=== PATIENT | female | born 1950 | race African-American/Black ===

== ENCOUNTER 2017-05-28 23:38 | Inpatient (IN) ==
[2017-05-29] MEDS ORDERED: NITROGLYCERIN 2% OINT 1 INCH/GM PACK TOP STA (00:08)
[2017-05-29] MEDS ORDERED: ALUM/MAG/SIMETH/LIDO VISC 1:1 30 ML BOTTLE PO STA (00:08)
[2017-05-29] MEDS ORDERED: ASPIRIN 325 MG TABLET PO STA (00:08)
[2017-05-29] MEDS ORDERED: MORPHINE 2 MG/1 ML SYRINGE IV STA ×2 (00:08→00:33)
[2017-05-29] MEDS ORDERED: METOPROLOL TARTRATE 5 MG/5 ML VIAL IV STA (00:08)
[2017-05-29] MEDS ORDERED: PROMETHAZINE 25 MG/1 ML VIAL IM STA (00:08)
[2017-05-29] MEDS ORDERED: ENOXAPARIN 100 MG/ML SYRINGE SUBCUT STA (00:08)
--- NOTE | 2017-05-29 00:15 | Emergency Department Note ---
IOnur Emily, am scribing for, and in the presence of, Aries Ta MD 00: 03. Keyon Lopez Charles R, MD, personally performed the services described in this documentation, ascribed by Radha Mohr in my presence, and it is both accurate and complete . 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 Pt describes pain as sharp with pressure on chest, and nausea hit with one emesis, but denies pain radiating. Pt reports as soon as she vomited, she came immediately to ED, in which states currently in no pain. Pt reports having a stress test/ECHO done about two months ago under supervision of Dr. Mendenhall, but was vague about the results. PMHx of IDDM, HTN , TIA, and blood clot years ago when taking blood thinners but no longer on blood thinners. Pt takes aspirin daily and took it this morning. FMHx of mother of heart attack. Onset (ago): hour(s) Consistency: constant, intermittent Severity: moderate Severity scale (1-10): 7 Quality: aching, sharp Allergies/Adverse Reactions: Allergies Allergy/AdvReac Type Severity Reaction Status Date / Time ketorolac [From Toradol] Allergy RASH Verified 05/29/17 00:00 nalbuphine [From Nubain] AdvReac Nausea Verified 05/29/17 00:00 ondansetron AdvReac Palpitation Verified 05/29/17 00:00 [From Zofran (as s hydrochloride)] tramadol [From Ultram] AdvReac Nausea Verified 05/29/17 00:00 Home Medications: Home Medications Medication Instructions Recorded Confirmed Type ALPRAZolam [Alprazolam] 0.5 mg PO Q4-6H PRN 05/26/15 11/20/16 History Albuterol Sulfate [Ventolin HFA] 2 puff INH DIRECTED PRN 05/26/15 11/20/16 History Allopurinol [Zyloprim] 100 mg PO BEDTIME 05/26/15 11/20/16 History Carvedilol 25 mg PO BID 05/26/15 11/20/16 History Gabapentin 600 mg PO TID 05/26/15 11/20/16 History Hydrocodone/Acetaminophen 1 each PO Q4HR 05/26/15 11/20/16 History [Hydrocodon-Acetaminophn 10-325] Insulin Aspart Prot/Asp 70/30 50 units SUBCUT DAILY W/BREAKFAST 05/26/15 History [NovoLOG Mix 70/30] Promethazine Tab [Phenergan Tab] 25 mg PO Q6H PRN #10 tablet 01/19/16 11/20/16 Rx Insulin Aspart Prot/Asp 70/30 35 unit SUBCUT BEDTIME 11/20/16 11/20/16 History [NovoLOG Mix 70/30] Tizanidine HCl [Zanaflex] 2 mg PO Q6H PRN 11/20/16 11/20/16 History Neomyc/Polymyx/Dexam Oph Susp 1 drops BOTH EYES DAILY 11/24/16 Rx [Maxitrol Oph Susp] ophthalmic suspension Pantoprazole Tab [Protonix Tab] 40 mg PO DAILY #60 tablet 11/24/16 Rx Sucralfate Tab [Carafate Tab] 1 gm PO ACHS tablet 11/24/16 Rx Review of System - Review of System 12 point system: reviewed and no additional remarkable complaints except as stated - Review of System Constitutional: Absent: fever Cardiovascular: Present: chest pain (non radiating) Gastrointestinal: Present: nausea, vomiting. Absent: abdominal pain Skin: Absent: rash Neurological: Absent: headache Medical,Surgical,& Family Hx - Medical History Cardio: History of: Cardiac Dysrhythmia (AFIB), Hypertension Neurology: History of: TIA Endocrine: History of: Diabetes Mellitus (IDDM), Dyslipidemia Gastrointestinal: History of: Diverticulitis/ Diverticulosis, GERD Musculoskeletal: History of: Musculoskeletal Problems (Osteoarthritis) - Surgical History Cardiac Surgeries: Patient Denies: Cardiac Catheterization Abdominal Surgeries: Surgical HX of: Abdominal Surgery (colon resection r/t diverticular rupture, SBO s/p SBR), Colonoscopy Reproductive Surgeries: Surgical HX of;: Hysterectomy - Family History Family History: Reports;: Family Heart Disease (MOM, AT 69) - Social History Smoking Status: Never smoker Marital Status: Single Lives With:: Alone Functional capacity: independent ambulation Exam Vital Signs: Vital Signs Temperature 97.6 F 05/28/17 23:42 Pulse Rate 96 H 05/28/17 23:42 Respiratory Rate 24 05/28/17 23:42 Blood Pressure 180/96 05/28/17 23:42 O2 Sat by Pulse Oximetry 98 05/28/17 23:42 - General General appearance: alert, in no apparent distress - Head Head exam: Present: atraumatic, normocephalic - Eye Eye exam: Present: PERRL, EOMI - ENT ENT exam: Present: mucous membranes moist. Absent: mucous membranes dry - Neck Neck exam: Present: full ROM. Absent: tenderness - Chest Chest inspection: Present: symmetric chest wall rise. Absent: tenderness - Respiratory Respiratory exam: Present: normal lung sounds bilaterally. Absent: respiratory distress - Cardiovascular Cardiovascular exam: Present: regular rate, normal rhythm, normal heart sounds - Abdominal Exam Abdominal exam: Present: soft, normal bowel sounds. Absent: distention, tenderness - Extremities Exam Extremities exam: Present: full ROM. Absent: tenderness, pedal edema - Neurological Exam Neurological exam: Present: alert, oriented X3, CN II-XII intact. Absent: motor sensory deficit - Psychiatric Psychiatric exam: Present: normal affect, normal mood - Skin Skin exam: Present: warm, dry Course - Consultations Consultation #1: Spoke to Dr. Skinner showed him the EKG he said since this is a new left parietal block and she has currently has 0 pain 0 out of 10 pain in the emergency room he said to treat this medically admit to the hospital he will see her tomorrow no need to go to the [facility] Time: 11:53 Results - Labs CBC & BMP: 05/29/17 00:03 05/29/17 00:03 Lab Results: I have reviewed the patients labs Labs: Laboratory Tests 05/29/17 00:03 Hgb 11.3 L Hct 34.7 L MPV 9.4 L Laboratory Tests 05/29/17 05/29/17 00:03 00:03 Sodium 140 Potassium 3.8 Chloride 107 Carbon Dioxide 28 Creatinine 1.20 H Glucose 70 L Alkaline Phosphatase 137 H B-Natriuretic Peptide 88 Total Protein 8.6 H Globulin 4.9 H Albumin/Globulin Ratio 0.7 L Lipase 143.0 Critical Care Time Critical Care Time: Yes Total Critical Care Time: 60 Disposition Clinical Impression: Chest pain, IDDM (insulin dependent diabetes mellitus), New onset left bundle branch block (LBBB), Hypertension Case discussed with: patient Condition: Stable Time of Disposition: 01:16
[2017-05-29 00:18] LABS: Basophils # 0.1 10*3/uL (0.0-0.2); Basophils % 0.5 % (0.0-0.8); Eosinophils # 0.3 10*3/uL (0.0-0.87); Eosinophils % 3.1 % (0.00-10.9); Hematocrit 34.7 VOL% (35.7-47.0); Hemoglobin 11.3 GM/DL (12.0-16.0); Immature Granulocytes Absolute 0.09 #; Lymphocytes # 2.2 10*3/uL (1.4-4.0); Lymphocytes % 23.5 % (21.3-54.2); Mean Corpuscular HGB Conc 32.6 GM/DL (32-36); Mean Corpuscular Hemoglobin 30 PG (27-34); Mean Corpuscular Volume 91.1 FL (87-102); Mean Platelet Volume 9.4 FL (9.6-12.0); Monocytes # 0.8 10*3/uL (0.11-0.8); Neutrophils % 63.9 % (38.7-73.9); Platelet Count 392 T/CUMM (130-400); Red Blood Count 3.81 MC/CUMM (3.8-5.5); White Blood Count 9.4 T/CUMM (4-12)
[2017-05-29] MEDS ORDERED: ENOXAPARIN 100 MG/ML SYRINGE SUBCUT ONE (00:18)
[2017-05-29] MEDS ORDERED: NITROGLYCERIN 2% OINT 1 INCH/GM PACK TOP ONE (00:18)
[2017-05-29] MEDS ORDERED: PROMETHAZINE 25 MG/1 ML VIAL ONE (00:18)
[2017-05-29] MEDS ORDERED: ASPIRIN 325 MG TABLET ONE (00:19)
[2017-05-29] MEDS ORDERED: MORPHINE 2 MG/1 ML SYRINGE ONE (00:19)
[2017-05-29] MEDS ORDERED: METOPROLOL TARTRATE 5 MG/5 ML VIAL IV ONE (00:19)
[2017-05-29] MEDS ORDERED: ALUM/MAG/SIMETH/LIDO VISC 1:1 30 ML BOTTLE PO ONE (00:19)
[2017-05-29 00:25] LABS: PT Patient Result 10.3 SECS
[2017-05-29] MEDS ORDERED: NITROGLYCERIN SL 0.4 MG TABLET SL STA (00:33)
[2017-05-29 00:55] LABS: Alanine Aminotransferase 21 U/L (13-56); Albumin 3.7 G/DL (3.4-5.0); Alkaline Phosphatase 137 U/L (45-117); Aspartate Amino Transferase 21 U/L (0-37); Bilirubin,Total < 0.39 MG/DL (0.2-1.0); Blood Urea Nitrogen 15 MG/DL (7-18); Calcium 9.6 MG/DL (8.5-10.1); Glucose 70 MG/DL (74-106); Magnesium 2.3 MG/DL (1.8-2.4); Osmolality,Calculated 277.4 MOS/KG (273-304); Potassium 3.8 MMOL/L (3.5-5.1); Sodium 140 MMOL/L (136-145); Total Protein 8.6 G/DL (6.4-8.3)
[2017-05-29] MEDS ORDERED: SODIUM CHLORIDE 0.9% 1,000 ML IV SCH (03:44)
[2017-05-29] MEDS ORDERED: MORPHINE 2 MG/1 ML SYRINGE IV PRN (03:44)
[2017-05-29] MEDS ORDERED: DEXTROSE 50% 25 GM/50 ML SYRINGE IV PRN (03:44)
[2017-05-29] MEDS ORDERED: MAGNESIUM SULF RIDER 2 GM in PREMIX 1 EACH IV PRN (03:44)
[2017-05-29] MEDS ORDERED: POTASSIUM CHLORIDE 20 MEQ TABLET PO PRN (03:44)
[2017-05-29] MEDS ORDERED: GLUCAGON 1 MG VIAL IM PRN (03:44)
[2017-05-29] MEDS ORDERED: MAGNESIUM SULF RIDER 4 GM in PREMIX 1 EACH IV PRN (03:44)
--- NOTE | 2017-05-29 04:45 | Cardiology History & Physical ---
Assessment and Plan - Time spent with patient Time spent with patient: Greater than 30 minutes (Examination, chart review, history, orders documentation) (1) Vertigo Status: Acute Current Visit: Yes (2) Chest pain Status: Acute Current Visit: Yes (3) Hypertension Status: Acute Current Visit: Yes (4) Esophagitis determined by endoscopy Status: Acute Current Visit: No (5) History of atrial fibrillation Status: Chronic Current Visit: No (6) HTN (hypertension) Status: Chronic Current Visit: No (7) History of melena Status: Resolved Current Visit: No (8) DM (diabetes mellitus) Status: Acute Current Visit: Yes History of Present Illness Chief complaint: Nausea dizziness and chest pain History of present illness: Ms. Davison is a 66 year old female with history of left bundle branch block and recent GI bleed who presented to the emergency room after having an episode of severe dizziness followed by emesis followed by 2 episodes of sharp chest discomfort. The patient EKG showed a left bundle branch block and I was called told the patient was Dr. Mendenhall's patient who had heart disease and a new left bundle branch block her chest pain was had resolved. Apparently the patient was recently hospitalized for GI bleed requiring multiple units of packed cells with both melena and bright red blood per rectum. The patient states that the episodes episode occurred in started out with dizziness followed by nausea and then sharp chest pain that was right in the center of her chest not associated with nausea or diaphoresis she also states that she had a significant amount of palpitations prior to her emesis. She has not had any exertional chest discomfort. She had a low risk nuclear stress test at [facility] in December of this year. Her ejection fraction was mildly depressed at 45-50% by echo and she had septal bounce felt to be due to her underlying left bundle branch block. She denies any heart cath. Her risk factors include family history remote smoking diabetes and dyslipidemia. The patient is admitted to the cardiology service she has not had any more chest discomfort since arrival to the emergency room she has not had any more palpitations or dizziness. She has experienced some nausea. I saw her in room 295 resting comfortably. The concerns for recent GI bleed in the sequence of events are very concerning for this being a GI source or possibly even a ANTENNA RIGGER source given her dizziness. She has a history of paroxysmal atrial fibrillation and did have palpitations beforehand. Her cardiac biomarkers are initial set is negative. I have reviewed her EKGs. I reviewed her chart at [facility]. Home Medications Medication Instructions Recorded Confirmed Type ALPRAZolam [Alprazolam] 0.5 mg PO Q4-6H PRN 05/26/15 11/20/16 History Albuterol Sulfate [Ventolin HFA] 2 puff INH DIRECTED PRN 05/26/15 11/20/16 History Allopurinol [Zyloprim] 100 mg PO BEDTIME 05/26/15 11/20/16 History Carvedilol 25 mg PO BID 05/26/15 11/20/16 History Gabapentin 600 mg PO TID 05/26/15 11/20/16 History Hydrocodone/Acetaminophen 1 each PO Q4HR 05/26/15 11/20/16 History [Hydrocodon-Acetaminophn 10-325] Insulin Aspart Prot/Asp 70/30 50 units SUBCUT DAILY W/BREAKFAST 05/26/15 History [NovoLOG Mix 70/30] Promethazine Tab [Phenergan Tab] 25 mg PO Q6H PRN #10 tablet 01/19/16 11/20/16 Rx Insulin Aspart Prot/Asp 70/30 35 unit SUBCUT BEDTIME 11/20/16 11/20/16 History [NovoLOG Mix 70/30] Tizanidine HCl [Zanaflex] 2 mg PO Q6H PRN 11/20/16 11/20/16 History Neomyc/Polymyx/Dexam Oph Susp 1 drops BOTH EYES DAILY 11/24/16 Rx [Maxitrol Oph Susp] ophthalmic suspension Pantoprazole Tab [Protonix Tab] 40 mg PO DAILY #60 tablet 11/24/16 Rx Sucralfate Tab [Carafate Tab] 1 gm PO ACHS tablet 11/24/16 Rx Allergies Allergy/AdvReac Type Severity Reaction Status Date / Time ketorolac [From Toradol] Allergy RASH Verified 05/29/17 00:00 nalbuphine [From Nubain] AdvReac Nausea Verified 05/29/17 00:00 ondansetron AdvReac Palpitation Verified 05/29/17 00:00 [From Zofran (as s hydrochloride)] tramadol [From Ultram] AdvReac Nausea Verified 05/29/17 00:00 - Constitutional Constitutional: Present: anorexia (Since dinner she has decreased appetite says she denied a full dinner just because she was not hungry). Absent: chills, frequent falls, headache(s), weight gain, weight loss - EENT Eyes: Present: blurry vision. Absent: diplopia Nose, mouth and throat: Absent: dysphagia, headache(s), hoarseness - Cardiovascular Cardiovascular: Present: chest pain at rest, lightheadedness, palpitations. Absent: chest pain with activity, dyspnea, dyspnea on exertion, edema, orthopnea , PND - Respiratory Respiratory: Absent: cough, dyspnea, dyspnea on exertion - Gastrointestinal Gastrointestinal: Present: bloating, early satiety, nausea, vomiting. Absent: abdominal pain, dyspepsia, heartburn, hematemesis - Genitourinary Genitourinary: Absent: abnormal vaginal bleeding, menorrhagia - Musculoskeletal Musculoskeletal: Present: arthralgias. Absent: back pain, joint swelling, muscle weakness, myalgias - Neurological Neurological: Absent: abnormal gait, dizziness, syncope - Psychiatric Psychiatric: Absent: anxiety, depression - Endocrine Endocrine: Absent: cold intolerance, heat intolerance - Hematologic/Lymphatic Hematologic/Lymphatic: Absent: easy bleeding, easy bruising Medical,Surgical,& Family Hx - Medical History Cardio: History of: Cardiac Dysrhythmia (AFIB, paroxysmal), Hypertension, Cardiovascular Problems (Intermittent left bundle branch block, chronic. Cardiomyopathy EF 50%) Neurology: History of: TIA Endocrine: History of: Diabetes Mellitus (IDDM), Dyslipidemia Gastrointestinal: History of: Diverticulitis/ Diverticulosis, GERD Musculoskeletal: History of: Musculoskeletal Problems (Osteoarthritis) - Surgical History Cardiac Surgeries: Patient Denies: Cardiac Catheterization Neurologic Surgeries: Patient denies: Neurologic Surgery Abdominal Surgeries: Surgical HX of: Abdominal Surgery (colon resection r/t diverticular rupture, SBO s/p SBR), Colonoscopy Reproductive Surgeries: Surgical HX of;: Hysterectomy - Family History Family History: Reports;: Family Heart Disease (MOM, AT 69) - Social History Smoking Status: Never smoker Frequency of Alcohol Use: None Type of Drug Use: None Marital Status: Lives With:: Spouse Functional capacity: independent ambulation Cardiology Physical Exam - Constitutional Vitals: Vital Signs Temp Pulse Resp BP Pulse Ox 97.6 F 96 H 18 180/96 98 05/28/17 23:42 05/28/17 23:42 05/29/17 04:15 05/28/17 23:42 05/28/17 23:42 Intake and Output 05/28/17 05/28/17 05/29/17 15:59 23:59 07:59 Other: Weight 89.811 kg 93.157 kg Patient Weight 05/29/17 23:59 Weight 93.157 kg General appearance: over weight - Head Head exam: Present: normal inspection - Eye Eye exam: Present: EOMI Pupils: Present: JOCELYN - ENT ENT exam: Present: normal exam - Neck Neck exam: Present: normal inspection - Respiratory Respiratory exam: Present: clear to auscultation bilaterally - Cardiovascular Cardiovascular exam: Present: regular rate and rhythm - GI/Abdominal GI/Abdominal exam: Present: normal bowel sounds - Extremities Exam Extremities exam: Present: normal inspection - Back Exam Back exam: Present: normal inspection - Neurological Exam Neurological exam: Present: alert, oriented X3, CN II-XII intact - Psychiatric Psychiatric exam: Present: normal affect, normal mood - Skin Skin exam: Present: normal color, warm, dry Result/EKG - Labs CBC & BMP: 05/29/17 00:03 05/29/17 00:03 Labs: Laboratory Results - last 24 hr 05/29/17 05/29/17 05/29/17 00:03 00:03 00:03 WBC RBC Hgb Hct MCV MCH MCHC RDW Plt Count MPV Neut % (Auto) Lymph % (Auto) [place] % (Auto) Eos % (Auto) Baso % (Auto) Neut # (Auto) Lymph # (Auto) [place] # (Auto) Eos # (Auto) Baso # (Auto) Immature Gran % Nucleated RBC % Immature Gran # Nucleated RBCs # Immature Plt Fraction INR 1.0 PT Patient/Control Mix 10.3 D-Dimer, Quantitative 1.0 Sodium 140 Potassium 3.8 Chloride 107 Carbon Dioxide 28 Anion Gap 8.8 BUN 15 Creatinine 1.20 H GFR Calculation 64 BUN/Creatinine Ratio 12.00 Glucose 70 L Calculated Osmolality 277.4 Calcium 9.6 Magnesium 2.3 Total Bilirubin < 0.39 AST 21 ALT 21 Alkaline Phosphatase 137 H Troponin I < 0.015 B-Natriuretic Peptide Total Protein 8.6 H Albumin 3.7 Globulin 4.9 H Albumin/Globulin Ratio 0.7 L Lipase 143.0 05/29/17 05/29/17 00:03 00:03 WBC 9.4 RBC 3.81 Hgb 11.3 L Hct 34.7 L MCV 91.1 MCH 30 MCHC 32.6 RDW 14.0 Plt Count 392 MPV 9.4 L Neut % (Auto) 63.9 Lymph % (Auto) 23.5 [place] % (Auto) 8.0 Eos % (Auto) 3.1 Baso % (Auto) 0.5 Neut # (Auto) 6.0 Lymph # (Auto) 2.2 [place] # (Auto) 0.8 Eos # (Auto) 0.3 Baso # (Auto) 0.1 Immature Gran % 1.0 Nucleated RBC % 0.0 Immature Gran # 0.09 Nucleated RBCs # 0.00 Immature Plt Fraction 0.0 INR PT Patient/Control Mix D-Dimer, Quantitative Sodium Potassium Chloride Carbon Dioxide Anion Gap BUN Creatinine GFR Calculation BUN/Creatinine Ratio Glucose Calculated Osmolality Calcium Magnesium Total Bilirubin AST ALT Alkaline Phosphatase Troponin I B-Natriuretic Peptide 88 Total Protein Albumin Globulin Albumin/Globulin Ratio Lipase - EKG EKG results: interpreted by me (nsr with lbbb (NOT NEW))
[2017-05-29] MEDS ORDERED: ONDANSETRON 4 MG/2 ML VIAL IV PRN (04:52)
[2017-05-29] MEDS ORDERED: NON-FORMULARY MEDICATION (Albuterol Sulfate [Ventolin Hfa] 2 PUFF) INH PRN (04:52)
[2017-05-29] MEDS ORDERED: tiZANidine 4 MG TABLET PO PRN (04:52)
[2017-05-29] MEDS ORDERED: ALPRAZolam 0.5 MG TABLET PO PRN (04:52)
[2017-05-29 06:15] LABS: Basophils % 0.5 % (0.0-0.8); Eosinophils # 0.2 10*3/uL (0.0-0.87); Eosinophils % 2.1 % (0.00-10.9); Hematocrit 30.4 VOL% (35.7-47.0); Hemoglobin 10.1 GM/DL (12.0-16.0); Immature Granulocytes % 0.6 %; Immature Granulocytes Absolute 0.05 #; Lymphocytes # 1.6 10*3/uL (1.4-4.0); Lymphocytes % 20.2 % (21.3-54.2); Mean Corpuscular HGB Conc 33.2 GM/DL (32-36); Mean Corpuscular Hemoglobin 30 PG (27-34); Mean Corpuscular Volume 90.2 FL (87-102); Mean Platelet Volume 9.4 FL (9.6-12.0); Monocytes # 0.5 10*3/uL (0.11-0.8); Monocytes % 6.8 % (1.7-12.7); Neutrophils # 5.4 10*3/uL (1.4-7.4); Neutrophils % 69.8 % (38.7-73.9); Platelet Count 367 T/CUMM (130-400); Red Blood Count 3.37 MC/CUMM (3.8-5.5); Red Cell Distribution Width 13.8 % (9.3-17.3); White Blood Count 7.8 T/CUMM (4-12)
[2017-05-29] MEDS: PROMETHAZINE 25 MG TABLET PO PRN ×3 (06:34→21:05)
[2017-05-29] MEDS: NITROGLYCERIN 2% OINT 1 INCH/GM PACK TOP SCH ×3 (06:52→17:36)
[2017-05-29 06:55] LABS: Alanine Aminotransferase 19 U/L (13-56); Albumin 3.4 G/DL (3.4-5.0); Alkaline Phosphatase 113 U/L (45-117); Amylase 32 U/L (25-115); Aspartate Amino Transferase 15 U/L (0-37); Bilirubin,Indirect 0.3 MG/DL (0.0-1.0); Bilirubin,Total < 0.39 MG/DL (0.2-1.0); Total Protein 7.2 G/DL (6.4-8.3)
[2017-05-29 06:56] LABS: Albumin 3.3 G/DL (3.4-5.0); Bilirubin,Total 0.5 MG/DL (0.2-1.0); Calcium 9.4 MG/DL (8.5-10.1); Magnesium 2.3 MG/DL (1.8-2.4); Potassium 4.2 MMOL/L (3.5-5.1); Risk Ratio 5.28; Total Protein 6.9 G/DL (6.4-8.3); VLDL CHOLESTEROL 29.8 MG/DL
--- NOTE | 2017-05-29 07:35 | EKG Report ---
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
--- NOTE | 2017-05-29 07:56 | XRay Report ---
XR chest 1V portable Indication: Shortness of breath Comparison: Chest x-ray 05/29/2017 Technique: Portable AP chest was performed. Findings: Underpenetrated study. Mild cardiomegaly is present. Lungs are clear for degree of inspiration and technique utilized. Bones and soft tissues are grossly remarkable. Impression: 1. Mild cardiomegaly. No specific evidence of acute pathology. 05/29/2017 7:53 AM PROCEDURE INTERPRETED AT [facility] DEPARTMENT OF RADIOLOGY Final Report Signed by: Dr. Srinivas Andrade
[2017-05-29] MEDS: CARVEDILOL 25 MG TABLET PO SCH ×2 (08:35→20:56)
[2017-05-29] MEDS: ASPIRIN EC 81 MG TABLET PO SCH (08:35)
[2017-05-29] MEDS: SUCRALFATE 1 GM TABLET PO SCH ×4 (08:36→20:57)
[2017-05-29] MEDS: PANTOPRAZOLE 40 MG TABLET PO SCH ×2 (08:36→09:51)
[2017-05-29] MEDS: GABAPENTIN 600 MG TABLET PO SCH ×3 (08:36→20:56)
[2017-05-29] MEDS: INSULIN ASPART PROTAMINE/ASPART 70/30 100 UNIT/ML SUBCUT SCH ×2 (08:36→08:41)
[2017-05-29] MEDS: INSULIN REGULAR 100 UNIT/ML SUBCUT SCH ×4 (08:37→21:01)
[2017-05-29] MEDS ORDERED: ENOXAPARIN 100 MG/ML SYRINGE SUBCUT SCH (09:00)
--- NOTE | 2017-05-29 09:15 | EKG Report ---
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
--- NOTE | 2017-05-29 09:15 | EKG Report ---
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
--- NOTE | 2017-05-29 09:45 | XRay Report ---
XR chest 1V portable Indication: Chest pain. Comparison: Chest x-ray 07/28/2016 Technique: Portable AP chest was performed. Findings: Mild cardiomegaly is suggested. Uncoiling of the thoracic aorta is moderate and appears stable. Prominent vessels are noted centrally within the chest. Lungs are clear for degree of inspiration. Bones and soft tissues demonstrate no acute findings. Impression: 1. Stable cardiomegaly. Mild pulmonary venous hypertensive changes are not excluded. 05/29/2017 9:10 AM PROCEDURE INTERPRETED AT [facility] DEPARTMENT OF RADIOLOGY Final Report Signed by: Dr. Srinivas Andrade
--- NOTE | 2017-05-29 15:29 | Gastrointestinal Consult Note ---
Assessment and Plan (1) Atypical chest pain Status: Acute Assessment and plan: This patient is already on maximal doses of Protonix 40 mg which she takes twice daily, we do need to check a gastric emptying study to see whether there is a motility issue as was thought to be present on her previous endoscopy done on 11/23/16. Will arrange for this for tomorrow. The patient could be discharged home immediately afterwards we will call her with the results of the gastric emptying study when this becomes available likely as an outpatient for her. I discussed the risks and benefits of use of Reglan which include sedation , agitation, and tardive dyskinesia side effects. The patient is understanding of these and is willing to proceed. She also complains of agitation her sleep after not using her CPAP and I suggested she bring hers in from home and initiate use now. Current Visit: Yes (2) Bloating symptom Status: Acute Assessment and plan: Again this is the major sign that the patient has underlying problems with gastroparesis. We will continue to await outpatient testing. Current Visit: Yes (3) Esophagitis determined by endoscopy Status: Acute Assessment and plan: The patient previously had upper endoscopy which demonstrated mild esophagitis, she is already on Protonix 40 mg p.o. twice daily and this is really all that she needs. Current Visit: No (4) Gastritis determined by endoscopy Status: Acute Assessment and plan: No Helicobacter pylori discovered on previous pathology. Continue treatment with proton pump inhibitors twice daily. Current Visit: No History of Present Illness Chief complaint: Atypical chest pain, dysphagia, GERD, History of present illness: Ms. Davison is a 66 year old female who has a history of melena and dysphagia and LA class a erosive esophagitis and dysphagia all of which are improved with her present dosing of Protonix 40 mg twice daily. She has a large hiatal hernia which is 5 cm with a moderate amount of green retained fluid in the stomach and mild patchy gastritis on her previous upper endoscopy which was done 11/23/16. She is now returned with more of a bloating and atypical chest pain sensation and is been evaluated by Dr. Leann lBack and felt to have an old bundle branch block that has been intermittent in the past and nothing that requires immediate intervention. Patient does take Protonix 40 mg twice daily at home has been fairly fastidious about taking this. She does have a sensation of bloating. She has never been on Reglan nor had gastric emptying study performed in the past, despite the green fluid seen on upper endoscopy. She also states that when observed at night she is heaving up and down with her chest unable to breathe according to her . On retrospect she has already been diagnosed with sleep apnea and just neglected to take her CPAP for use over the last 2 months. She has not had much in the way of diarrhea or constipation. Her hematocrit is dropped over the hospitalization between 34.7 and 30.4 currently. Home Medications Medication Instructions Recorded Confirmed Type ALPRAZolam [Alprazolam] 0.5 mg PO Q4-6H PRN 05/26/15 11/20/16 History Albuterol Sulfate [Ventolin HFA] 2 puff INH DIRECTED PRN 05/26/15 11/20/16 History Allopurinol [Zyloprim] 100 mg PO BEDTIME 05/26/15 11/20/16 History Carvedilol 25 mg PO BID 05/26/15 11/20/16 History Gabapentin 600 mg PO TID 05/26/15 11/20/16 History Hydrocodone/Acetaminophen 1 each PO Q4HR 05/26/15 11/20/16 History [Hydrocodon-Acetaminophn 10-325] Insulin Aspart Prot/Asp 70/30 50 units SUBCUT DAILY W/BREAKFAST 05/26/15 History [NovoLOG Mix 70/30] Promethazine Tab [Phenergan Tab] 25 mg PO Q6H PRN #10 tablet 01/19/16 11/20/16 Rx Insulin Aspart Prot/Asp 70/30 35 unit SUBCUT BEDTIME 11/20/16 11/20/16 History [NovoLOG Mix 70/30] Tizanidine HCl [Zanaflex] 2 mg PO Q6H PRN 11/20/16 11/20/16 History Neomyc/Polymyx/Dexam Oph Susp 1 drops BOTH EYES DAILY 11/24/16 Rx [Maxitrol Oph Susp] ophthalmic suspension Pantoprazole Tab [Protonix Tab] 40 mg PO DAILY #60 tablet 11/24/16 Rx Sucralfate Tab [Carafate Tab] 1 gm PO ACHS tablet 11/24/16 Rx Allergies Allergy/AdvReac Type Severity Reaction Status Date / Time ketorolac [From Toradol] Allergy RASH Verified 05/29/17 00:00 nalbuphine [From Nubain] AdvReac Nausea Verified 05/29/17 00:00 ondansetron AdvReac Palpitation Verified 05/29/17 00:00 [From Zofran (as s hydrochloride)] tramadol [From Ultram] AdvReac Nausea Verified 05/29/17 00:00 Medical,Surgical,& Family Hx - Medical History Cardio: History of: Cardiac Dysrhythmia (AFIB, paroxysmal), Hypertension, Cardiovascular Problems (Intermittent left bundle branch block, chronic. Cardiomyopathy EF 50%) Neurology: History of: TIA Endocrine: History of: Diabetes Mellitus (IDDM), Dyslipidemia Gastrointestinal: History of: Diverticulitis/ Diverticulosis, GERD Musculoskeletal: History of: Musculoskeletal Problems (Osteoarthritis) - Surgical History Cardiac Surgeries: Patient Denies: Cardiac Catheterization Neurologic Surgeries: Patient denies: Neurologic Surgery Abdominal Surgeries: Surgical HX of: Abdominal Surgery (colon resection r/t diverticular rupture, SBO s/p SBR), Colonoscopy Reproductive Surgeries: Surgical HX of;: Hysterectomy - Family History Family History: Reports;: Family Heart Disease (MOM, AT 69) - Social History Smoking Status: Never smoker Frequency of Alcohol Use: None Type of Drug Use: None 12 point system: reviewed and no additional remarkable complaints except as stated Review of systems: Constitutional: Denies fever, chills, mild nausea nausea, but no vomiting Eyes: Denies dry eyes, and scleral icterus HENT: Denies headaches Cardiovascular: Denies acute chest pain and claudication Respiratory: Occasional shortness of breath, wheezing, and difficulty breathing, denies cough Gastrointestinal: As noted in the HPI Genitourinary: Denies dysuria and hematuria Neurologic: Denies vision loss, and loss of sensation Musculoskeletal: Admits to some joint swelling, joint stiffness, and muscular weakness Psychiatric: She does have some depression but no reinier symptoms Heme-Lymph: Denies easy bruising, lymph node enlargement or tenderness, night sweats, excessive bleeding Allergies-immunologic: Denies pruritus and rhinorrhea Exam - Constitutional Vitals: Period Temp Pulse Resp BP Sys/Moscoso Pulse Ox Last 24 Hr 97 F-97.6 F 59-96 18-24 123-180/60-96 95-98 Exam: Constitutional: Well-developed, well-nourished, morbidly obese black female alert, and in no acute distress Head and face: Head: Normocephalic atraumatic Eyes: Conjunctiva without injection, no gross scleral icterus, pupils equal and round bilaterally Ears: Intact to conversation in both ears Nose: External appearance is normal, nares patent Mouth: Oral mucous membranes moist without erythema dentition noted to be without erosion Neck: Normal appearance, no masses or tenderness, trachea midline Thyroid: Gland midline and appropriate size for age Respiratory: Normal respiratory effort, clear to auscultation without wheezes, rhonchi or rales Cardiovascular: Regular rate and rhythm, normal S1, S2, the exam is without rubs, murmurs or gallops. Gastrointestinal: Mild tenderness to deep palpation in the epigastric and left upper quadrant to palpation, normal active bowel sounds, tone normal without rigidity or guarding, no masses present, no hepatomegaly, no spleen tip felt. No rectal exam obtained. Lymphatic: Neck without adenopathy, axilla without lymphadenopathy present Musculoskeletal: Right and left lower extremities without evidence of edema Skin and subcutaneous tissue: No rashes or ulcerations noted, normal skin turgor, digits and nails without clubbing/cyanosis/deformities. Neurologic: The patient is grossly oriented to person place and time, cranial nerves show tongue movements are normal with normal tongue extrusion midline, light touch sensation is intact. Psychiatric: No hallucinations or delusions are present, does not appear depressed Results - Labs CBC & BMP: 05/29/17 05:58 05/29/17 05:58
[2017-05-29] MEDS ORDERED: amLODIPine 5 MG TABLET PO ONE (18:44)
[2017-05-29] MEDS ORDERED: diphenhydrAMINE CAP 50 MG CAPSULE PO PRN (20:40)
[2017-05-29] MEDS ORDERED: INSULIN ASPART PROTAMINE/ASPART 70/30 100 UNIT/ML SUBCUT SCH (21:00)
[2017-05-29] MEDS ORDERED: ATORVASTATIN 80 MG TABLET PO SCH (21:00)
[2017-05-29] MEDS ORDERED: ALLOPURINOL 100 MG TABLET PO SCH (21:00)
[2017-05-30] MEDS: NITROGLYCERIN 2% OINT 1 INCH/GM PACK TOP SCH ×3 (01:23→12:34)
[2017-05-30 04:55] LABS: Basophils # 0.1 10*3/uL (0.0-0.2); Basophils % 0.8 % (0.0-0.8); Eosinophils # 0.3 10*3/uL (0.0-0.87); Eosinophils % 3.7 % (0.00-10.9); Hematocrit 34.1 VOL% (35.7-47.0); Hemoglobin 10.8 GM/DL (12.0-16.0); Immature Granulocytes % 0.7 %; Immature Granulocytes Absolute 0.05 #; Lymphocytes # 1.6 10*3/uL (1.4-4.0); Lymphocytes % 21.8 % (21.3-54.2); Mean Corpuscular HGB Conc 31.7 GM/DL (32-36); Mean Corpuscular Hemoglobin 29 PG (27-34); Mean Corpuscular Volume 92.4 FL (87-102); Mean Platelet Volume 9.6 FL (9.6-12.0); Monocytes # 0.5 10*3/uL (0.11-0.8); Monocytes % 6.4 % (1.7-12.7); Neutrophils % 66.6 % (38.7-73.9); Platelet Count 390 T/CUMM (130-400); Red Blood Count 3.69 MC/CUMM (3.8-5.5); Red Cell Distribution Width 13.9 % (9.3-17.3); White Blood Count 7.5 T/CUMM (4-12)
[2017-05-30 05:24] LABS: Calcium 9.6 MG/DL (8.5-10.1); Osmolality,Calculated 281.7 MOS/KG (273-304); Potassium 4.7 MMOL/L (3.5-5.1)
--- NOTE | 2017-05-30 06:38 | Gastrointestinal Progress Note ---
Assessment and Plan (1) Atypical chest pain Status: Acute Assessment and plan: This patient is already on maximal doses of Protonix 40 mg which she takes twice daily, we do need to check a gastric emptying study to see whether there is a motility issue as was thought to be present on her previous endoscopy done on 11/23/16. Will arrange for this for tomorrow. The patient could be discharged home immediately afterwards we will call her with the results of the gastric emptying study when this becomes available likely as an outpatient for her. I discussed the risks and benefits of use of Reglan which include sedation , agitation, and tardive dyskinesia side effects. The patient is understanding of these and is willing to proceed. She also complains of agitation her sleep after not using her CPAP and I suggested she bring hers in from home and initiate use now. 05/30/17--patient is doing better this morning, awaiting gastric emptying study. A prescription has been left for both Reglan and Protonix which she can take with her upon discharge. From my standpoint she can go right after the gastric emptying study, we will alert her as to the results of this as an outpatient. I am fairly sure this is going to be prolonged, hence the prescription for the Reglan elixir. She is being given Reglan elixir 1 mg/mL with 5-10 mL q. before meals and nightly as needed for bloating and gastroparesis. She will take this in addition to her Protonix 40 mg twice daily. Current Visit: Yes (2) Bloating symptom Status: Acute Assessment and plan: Again this is the major sign that the patient has underlying problems with gastroparesis. We will continue to await outpatient testing. 05/30/17--As noted above. Patient is able to leave the hospital right after the emptying evaluation. We will follow-up with her in the office as appropriate. Current Visit: Yes (3) Esophagitis determined by endoscopy Status: Acute Assessment and plan: The patient previously had upper endoscopy which demonstrated mild esophagitis, she is already on Protonix 40 mg p.o. twice daily and this is really all that she needs. 05/30/17--As per previous endoscopy Current Visit: No (4) Gastritis determined by endoscopy Status: Acute Assessment and plan: No Helicobacter pylori discovered on previous pathology. Continue treatment with proton pump inhibitors twice daily. 7/31/17--As per prior endoscopy. Current Visit: No Gastroenterology - PN: Subj Interval history: The patient is getting nauseous after she eats consistent with a probable gastroparesis picture. She has some atypical chest pain and was ruled out for cardiac issues with her intermittent left bundle branch block by Dr. Black. She will be able to leave today after she gets her gastric emptying study. A prescription has been written and left in the front of the chart for both Protonix and Reglan presumptively. The patient's family was told to bring in her CPAP which they did but somehow she got switched from CPAP to oxygen over the evening time. The patient is also insisting on using her insulin pen from home to treat her diabetes, according to nursing staff. Exam (Progress Note) - Constitutional Vitals: Period Temp Pulse Resp BP Sys/Moscoso Pulse Ox Last 24 Hr 97 F-98.2 F 18-79 16-18 144-188/69-93 91-98 General appearance: no acute distress - Head Head exam: Present: normocephalic - Eye Eye exam: Present: EOMI - Respiratory Respiratory exam: Present: clear to auscultation bilaterally - Cardiovascular Cardiovascular exam: Present: regular rate and rhythm - GI/Abdominal GI/Abdominal exam: Present: normal bowel sounds, soft. Absent: distended, tenderness, rebound - Neurological Exam Neurological exam: Present: alert, oriented X3, CN II-XII intact. Absent: motor sensory deficit - Psychiatric Psychiatric exam: Present: normal affect, normal mood - Skin Skin exam: Present: warm Results - Labs CBC & BMP: 05/30/17 03:50 05/30/17 03:50
[2017-05-30] MEDS: INSULIN REGULAR 100 UNIT/ML SUBCUT SCH ×3 (07:58→18:00)
[2017-05-30] MEDS ORDERED: amLODIPine 5 MG TABLET PO SCH (09:00)
[2017-05-30] MEDS: INSULIN ASPART PROTAMINE/ASPART 70/30 100 UNIT/ML SUBCUT SCH (09:56)
[2017-05-30] MEDS: SUCRALFATE 1 GM TABLET PO SCH ×3 (09:56→17:00)
[2017-05-30] MEDS: GABAPENTIN 600 MG TABLET PO SCH ×3 (12:27→15:03)
[2017-05-30] MEDS: PANTOPRAZOLE 40 MG TABLET PO SCH ×2 (12:28→12:29)
[2017-05-30] MEDS: CARVEDILOL 25 MG TABLET PO SCH (12:29)
[2017-05-30] MEDS: ASPIRIN EC 81 MG TABLET PO SCH (12:29)
--- NOTE | 2017-05-30 12:44 | Nuclear Medicine Report ---
NM gastric emptying study Indication: Atypical chest pain. Retained food on EGD. Comparison: None. Technique: Following administration of 500 uCi technetium 99m labeled sulfur colloid mixed in an egg sandwich, planar imaging of the stomach and upper abdomen was performed in the anterior projection. Time activity curve was then calculated through 108 minutes. Findings: Planar images demonstrate homogeneous activity within the stomach with emptying into the small bowel normal manner. Time/activity curve demonstrates linear. Half-time of emptying of 141.7 minutes. At 60 minutes, 22% emptying is demonstrated with 38% emptying at 108 minutes. There does appear to be a physiologic lag at the initiation of the study. Impression: 1. Elevated halftimes of emptying compatible with gastroparesis in the solid phase. 05/30/2017 12:40 PM PROCEDURE INTERPRETED AT [facility] DEPARTMENT OF RADIOLOGY Final Report Signed by: Dr. Srinivas Andrade
--- NOTE | 2017-05-30 15:33 | Discharge Summary ---
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 MENDENHALL SUMMARY: Ms. Davison is a 66 year old black female with risk factors significant for: age, hypertension, dyslipidemia, diabetes, obesity, sedentary lifestyle, family history of CAD, previous tobaccoism. Past medical history includes TIA, GERD, paroxysmal atrial fibrillation, gastritis, and esophagitis. Last admission to the hospital was in October 2016 when she presented with epigastric discomfort, rectal bleeding, atypical chest pain, and was treated for a GI bleed. She did require transfusion. She has seen Dr. Mendenhall in clinic in follow-up since that time. [facility] presenting to [facility] ER complaining of atypical chest discomfort, epigastric pain, some transient palpitations prior to an episode of nausea/vomiting. EKG in the ER noted to have left bundle branch block, and Dr. Black saw patient urgently while in the ER. After review of old records, [facility] chart, and clinical presentation, it was determined that it was not an acute coronary syndrome. She was admitted for further observation and evaluation. Cardiac biomarkers have been normal. Gastroenterology has evaluated also. April: Patient has had gastric emptying scan performed today, and has recently returned to her room after completing this. She is resting comfortably, and is using her BiPAP machine. She denies chest pain, dyspnea. Reports she felt she was "breathing funny" earlier, and that her has also recently noticed this, but she also tells me that she has not been using her sleep machine at home for "at least 3 months." She has not had any further epigastric discomfort , nausea, or vomiting since Tuesday afternoon. Labs reviewed and overall unremarkable. SBP 140-175 mmHg. Sinus rhythm, pulse rate 60s, LBBB per stem cleaning machine feeder with no dysrhythmia. ASSESSMENT/PLAN: 1. ATYPICAL CHEST PAIN - No clinical findings for ACS. Patient with history of erosive gastritis and esophagitis. Gastric emptying scan completed this morning. 2. LEFT BUNDLE BRANCH BLOCK - Review of EKG from [facility] records reveal left bundle branch block. Echo on April 25 in clinic showed septal bounce and felt to be due to underlying left bundle branch block. (LV EF 45-50%) 3. HYPERTENSION - BP is suboptimally controlled today. Will adjust antihypertensive medications as indicated. 4. PAROXSYMAL ATRIAL FIBRILLATION - EKG shows sinus rhythm since admission. Continue beta jerry. 5. DIABETES - Continue current plan of care. 6. HYPERLIPIDEMIA - Conginue atorvastatin. 7. GERD - Continue PPI. 8. HISTORY OF EROSIVE GASTRITIS/ESOPHAGITIS - Gastroenterolgy has evaluated. Emptying scan earlier this morning. 9. ANEMIA - Stable; No overt s/s bleeding. Continue to monitor closely. 10. HISTORY OF TIA - Stable. No neurological symptoms or complaint at this time. I have discussed in detail the particulars of this case and I have examined the patient and reviewed the patient's chart both current and old. I was directly involved in the patient's evaluation and management and I completely agree with Felipa Castellanos RN regarding this patient's evaluation and treatment plan. Discharge Plan - Discharge Data Disposition: Disch To Home/Self Care Condition at Discharge: Stable - Discharge Medications Continue Hydrocodone/Acetaminophen [Hydrocodon-Acetaminophn 10-325] 1 each PO Q6HR PRN PRN Reason: Pain Gabapentin 600 mg PO BID Carvedilol 25 mg PO BID Albuterol Sulfate [Ventolin HFA] 2 puff INH DIRECTED PRN PRN Reason: Shortness Of Breath Allopurinol [Zyloprim] 100 mg PO BEDTIME Promethazine Tab [Phenergan Tab] 25 mg PO Q6H PRN #10 tablet PRN Reason: Nausea Insulin Aspart [NovoLOG FlexPen] 10 unit SUBCUT TIDAC Pantoprazole Tab [Protonix Tab] 40 mg PO DAILY #60 tablet Insulin Degludec [Tresiba Flextouch U-200] 50 unit SQ BEDTIME - Follow Up or Referral Follow Up: Torey Mendenhall MD [Physician] - 2 Weeks (EKG BMP CBC on return to clinic) - Forms/Instructions Exam - Constitutional Vitals: Period Temp Pulse Resp BP Sys/Moscoso Pulse Ox Last 24 Hr 97.1 F-98.2 F 18-79 16-20 138-188/68-93 91-98 Discharge Results Labs on day of discharge: Labs from last 24 hours 05/30/17 05/30/17 05/30/17 11:57 08:00 03:50 WBC RBC Hgb Hct MCV MCH MCHC RDW Plt Count MPV Neut % (Auto) Lymph % (Auto) Faulk % (Auto) Eos % (Auto) Baso % (Auto) Neut # (Auto) Lymph # (Auto) Faulk # (Auto) Eos # (Auto) Baso # (Auto) Immature Gran % Nucleated RBC % Immature Gran # Nucleated RBCs # Immature Plt Fraction Sodium 138 Potassium 4.7 Chloride 104 Carbon Dioxide 28 Anion Gap 10.7 BUN 17 Creatinine 1.00 GFR Calculation 14 BUN/Creatinine Ratio 17.00 Glucose 192 H POC Glucose 171 H 185 H Calculated Osmolality 281.7 Calcium 9.6 05/30/17 05/29/17 03:50 17:29 WBC 7.5 RBC 3.69 L Hgb 10.8 L Hct 34.1 L MCV 92.4 MCH 29 MCHC 31.7 L RDW 13.9 Plt Count 390 MPV 9.6 Neut % (Auto) 66.6 Lymph % (Auto) 21.8 Faulk % (Auto) 6.4 Eos % (Auto) 3.7 Baso % (Auto) 0.8 Neut # (Auto) 5.0 Lymph # (Auto) 1.6 Faulk # (Auto) 0.5 Eos # (Auto) 0.3 Baso # (Auto) 0.1 Immature Gran % 0.7 Nucleated RBC % 0.0 Immature Gran # 0.05 Nucleated RBCs # 0.00 Immature Plt Fraction 0.0 Sodium Potassium Chloride Carbon Dioxide Anion Gap BUN Creatinine GFR Calculation BUN/Creatinine Ratio Glucose POC Glucose 223 H Calculated Osmolality Calcium DS: Provider Date of admission: 05/29/17 01:16 Primary care physician: . No PCP Attending physician on admission: Leann Black DO Consults: 05/29/17 04:51 Consult to Physician [CONS] Routine Comment: Consulting Provider: Arnie Heaton Discharging clinician: Torey Mendenhall MD
--- NOTE | 2017-05-30 15:35 | Cardiology Progress Note ---
Emanuel Lopez Vanessa RN, am scribing for, and in the presence of, Torey Mendenhall MD 15:35. Assessment and Plan - Time spent with patient Time spent with patient: Greater than 30 minutes (1) Atypical chest pain Status: Acute Assessment and plan: SEE PLAN OF CARE LISTED BELOW. Current Visit: Yes (2) Dysphagia Status: Acute Assessment and plan: SEE PLAN OF CARE LISTED BELOW. Current Visit: No (3) DM (diabetes mellitus) Status: Chronic Assessment and plan: SEE PLAN OF CARE LISTED BELOW. Current Visit: Yes (4) Hypertension Status: Chronic Assessment and plan: SEE PLAN OF CARE LISTED BELOW. Current Visit: Yes (5) GERD (gastroesophageal reflux disease) Status: Chronic Assessment and plan: SEE PLAN OF CARE LISTED BELOW. Current Visit: Yes (6) History of gastritis Status: Chronic Assessment and plan: SEE PLAN OF CARE LISTED BELOW. Current Visit: Yes (7) History of atrial fibrillation Status: Chronic Assessment and plan: SEE PLAN OF CARE LISTED BELOW. Current Visit: No (8) Anemia Status: Chronic Assessment and plan: SEE PLAN OF CARE LISTED BELOW. Current Visit: Yes (9) Left bundle branch block (LBBB) on electrocardiogram Status: Acute Assessment and plan: SEE PLAN OF CARE LISTED BELOW. Current Visit: Yes (10) History of TIA (transient ischemic attack) Status: Chronic Assessment and plan: SEE PLAN OF CARE LISTED BELOW. Current Visit: Yes Cardiology - PN: Subj Interval history: PRIMARY HUMAN SERVICE COORDINATOR: DR. MENDENHALL SUMMARY: Ms. Davison is a 66 year old black female with risk factors significant for: age, hypertension, dyslipidemia, diabetes, obesity, sedentary lifestyle, family history of CAD, previous tobaccoism. Past medical history includes TIA, GERD, paroxysmal atrial fibrillation, gastritis, and esophagitis. Last admission to the hospital was in October 2016 when she presented with epigastric discomfort, rectal bleeding, atypical chest pain, and was treated for a GI bleed. She did require transfusion. She has seen Dr. Mendenhall in clinic in follow-up since that time. Patient now admitted [facility] after presenting to the ER complaining of atypical chest discomfort, epigastric pain, some transient palpitations prior to an episode of nausea/vomiting. EKG in the ER noted to have left bundle branch block, and Dr. Black saw patient urgently while in the ER. After review of old records, [facility] chart, and clinical presentation, it was determined that it was not an acute coronary syndrome. She was admitted for further observation and evaluation. Cardiac biomarkers have been normal. Gastroenterology has evaluated also. April: Patient has had gastric emptying scan performed today, and has recently returned to her room after completing this. She is resting comfortably, and is using her BiPAP machine. She denies chest pain, dyspnea. Reports she felt she was "breathing funny" earlier, and that her has also recently noticed this, but she also tells me that she has not been using her sleep machine at home for "at least 3 months." She has not had any further epigastric discomfort , nausea, or vomiting since Tuesday afternoon. Labs reviewed and overall unremarkable. SBP 140-175 mmHg. Sinus rhythm, pulse rate 60s, LBBB per court recording monitor with no dysrhythmia. ASSESSMENT/PLAN: 1. ATYPICAL CHEST PAIN - No clinical findings for ACS. Patient with history of erosive gastritis and esophagitis. Gastric emptying scan completed this morning. 2. LEFT BUNDLE BRANCH BLOCK - Review of EKG from [facility] records reveal left bundle branch block. Echo on April 25 in clinic showed septal bounce and felt to be due to underlying left bundle branch block. (LV EF 45-50%) 3. HYPERTENSION - BP is suboptimally controlled today. Will adjust antihypertensive medications as indicated. 4. PAROXSYMAL ATRIAL FIBRILLATION - EKG shows sinus rhythm since admission. Continue beta jerry. 5. DIABETES - Continue current plan of care. 6. HYPERLIPIDEMIA - Conginue atorvastatin. 7. GERD - Continue PPI. 8. HISTORY OF EROSIVE GASTRITIS/ESOPHAGITIS - Gastroenterolgy has evaluated. Emptying scan earlier this morning. 9. ANEMIA - Stable; No overt s/s bleeding. Continue to monitor closely. 10. HISTORY OF TIA - Stable. No neurological symptoms or complaint at this time. I have discussed in detail the particulars of this case and I have examined the patient and reviewed the patient's chart both current and old. I was directly involved in the patient's evaluation and management and I completely agree with [Felipa Castellanos RN] regarding this patient's evaluation and treatment plan. Exam (Progress Note) - Constitutional Vitals: Period Temp Pulse Resp BP Sys/Moscoso Pulse Ox Last 24 Hr 97.1 F-98.2 F 18-79 16-20 138-188/68-93 91-98 General appearance: no acute distress, other (obese) - Head Head exam: Present: normocephalic. Absent: atraumatic, abrasion - Eye Eye exam: Present: EOMI. Absent: periorbital swelling, scleral icterus, laceration to eyelids Pupils: Present: JOCELYN. Absent: dilated, fixed, irregular - ENT ENT exam: Present: normal external ear exam - Neck Neck exam: Present: normal inspection. Absent: tenderness - Respiratory Respiratory exam: Present: clear to auscultation bilaterally. Absent: accessory muscle use, rales, rhonchi, stridor, wheezes - Cardiovascular Cardiovascular exam: Present: regular rate and rhythm. Absent: bradycardia, JVD , systolic murmur, tachycardia - GI/Abdominal GI/Abdominal exam: Present: normal bowel sounds, tenderness (Reports some slight tenderness of well-healed surgical scar LUQ abdomen), soft. Absent: ascites, firm, mass - Extremities Exam Extremities exam: Present: normal inspection, normal capillary refill, full ROM. Absent: calf tenderness, edema - Back Exam Back exam: Present: normal inspection - Neurological Exam Neurological exam: Present: alert, oriented X3 - Psychiatric Psychiatric exam: Present: normal affect, normal mood. Absent: agitated, anxious - Skin Skin exam: Present: warm, dry, intact. Absent: abrasion, cyanosis, diaphoretic , rash Result/EKG - Labs CBC & BMP: 05/30/17 03:50 05/30/17 03:50 Lab Results: I have reviewed the past 24 hour labs Labs: Laboratory Results - last 24 hr 05/29/17 05/30/17 05/30/17 17:29 03:50 03:50 WBC 7.5 RBC 3.69 L Hgb 10.8 L Hct 34.1 L MCV 92.4 MCH 29 MCHC 31.7 L RDW 13.9 Plt Count 390 MPV 9.6 Neut % (Auto) 66.6 Lymph % (Auto) 21.8 [place] % (Auto) 6.4 Eos % (Auto) 3.7 Baso % (Auto) 0.8 Neut # (Auto) 5.0 Lymph # (Auto) 1.6 [place] # (Auto) 0.5 Eos # (Auto) 0.3 Baso # (Auto) 0.1 Immature Gran % 0.7 Nucleated RBC % 0.0 Immature Gran # 0.05 Nucleated RBCs # 0.00 Immature Plt Fraction 0.0 Sodium 138 Potassium 4.7 Chloride 104 Carbon Dioxide 28 Anion Gap 10.7 BUN 17 Creatinine 1.00 GFR Calculation 14 BUN/Creatinine Ratio 17.00 Glucose 192 H POC Glucose 223 H Calculated Osmolality 281.7 Calcium 9.6 05/30/17 05/30/17 08:00 11:57 WBC RBC Hgb Hct MCV MCH MCHC RDW Plt Count MPV Neut % (Auto) Lymph % (Auto) [place] % (Auto) Eos % (Auto) Baso % (Auto) Neut # (Auto) Lymph # (Auto) [place] # (Auto) Eos # (Auto) Baso # (Auto) Immature Gran % Nucleated RBC % Immature Gran # Nucleated RBCs # Immature Plt Fraction Sodium Potassium Chloride Carbon Dioxide Anion Gap BUN Creatinine GFR Calculation BUN/Creatinine Ratio Glucose POC Glucose 185 H 171 H Calculated Osmolality Calcium - EKG EKG results: interpreted by me, no acute changes EKG shows: sinus rhythm (LBBB) Specialty Discharge - Follow Up or Referrals Follow up with: Torey Mendenhall MD [Physician] - 2 Weeks (EKG BMP CBC on return to clinic) IAbdirashid Wesley, MD, personally performed the services described in this documentation, ascribed by Felipa Castellanos RN in my presence, and it is both accurate and complete 535 .
[2017-05-30 16:02] VITALS: BP 143/68
--- NOTE | 2017-05-31 12:55 | Physician Query Form ---
CLICK EDIT DOCUMENT TO SELECT QUERY ANSWER --> OK --> SIGN Lucrecia Andrade RN, CCDS Certified Clinical Manager Of It W) [phone] (f) [phone] [email or web address]: Make your selection(s) from the choices in EACH section by typing an "x" and enter comments in the comment section. Please use your independent medical judgment in providing your response. This request does not imply that any particular answer is desired or expected. CLINICAL INDICATORS: (Providers should not edit this section) The medical record indicates that the patient was admitted with Acute chest pain , pressure in chest, nausea, vomited, and "prescription has been left for both Reglan and Protonix which she can take with her upon discharge". Per Nuclear Medicine Report --- " Elevated halftimes of emptying compatible with gastroparesis in the solid phase" After necessary workup, could you please state the underlying cause of the patient's chest pain, if determined. NON-CARDIAC ETIOLOGY: ( ) GERD (xx) Gastroparesis due to DM ( ) Gastroparesis ( ) Anterior chest wall pain ( ) Pleuritic pain ( ) Costochondritis ( ) Anxiety ( ) Musculoskeletal, please provide site: ( ) Troponin elevation due to non-cardiac cause, please specify: ( ) Other etiology, please specify: ( ) Clinically unable to determine COMMENTS: PLEASE ALSO DOCUMENT RESPONSE IN PROGRESS NOTES AND/OR DISCHARGE SUMMARY Use of terms such as suspected, likely, or probable (associated with a specific diagnosis that is being evaluated, monitored, or treated as if it exists) are acceptable and can be restated in the discharge summary if not ruled out. MTDD
== END 2017-05-30 18:45 | disposition home or self-care (01) | DRG 74 ==
LOC: N.ED 23:38 → N.EDINP 05-29 01:16 → N.TELEN 05-29 01:55
PROVIDERS: ADMIT Internal Medicine Cardiovascular Disease; ATTEND Internal Medicine Cardiovascular Disease

== ENCOUNTER 2019-06-08 19:32 | Observation (INO) ==
[2019-06-08 21:10] LABS: Basophils % 0.3 % (0.0-0.8); Eosinophils # 0.2 10*3/uL (0.0-0.87); Eosinophils % 2.1 % (0.00-10.9); Hematocrit 32.7 VOL% (35.7-47.0); Hemoglobin 10.7 GM/DL (12.0-16.0); Immature Granulocytes % 0.4 %; Immature Granulocytes Absolute 0.05 #; Lymphocytes # 1.4 10*3/uL (1.4-4.0); Mean Corpuscular HGB Conc 32.7 GM/DL (32-36); Mean Corpuscular Volume 88.6 FL (87-102); Mean Platelet Volume 9.5 FL (9.6-12.0); Monocytes % 6.8 % (1.7-12.7); Neutrophils % 78.4 % (38.7-73.9); Platelet Count 336 T/CUMM (130-400); Red Blood Count 3.69 MC/CUMM (3.8-5.5); Red Cell Distribution Width 13.1 % (9.3-17.3); White Blood Count 11.5 T/CUMM (4-12)
[2019-06-08 21:39] LABS: Albumin 3.3 G/DL (3.4-5.0); Bilirubin,Total 0.8 MG/DL (0.2-1.0); Calcium 9.8 MG/DL (8.5-10.1); Osmolality,Calculated 284.7 MOS/KG (273-304); Total Protein 8.2 G/DL (6.4-8.3)
[2019-06-08] MEDS ORDERED: METOCLOPRAMIDE 10 MG/2 ML VIAL IV STA (22:22)
[2019-06-08] MEDS ORDERED: DICYCLOMINE 20 MG/2 ML AMP IM ONE (22:22)
[2019-06-08] MEDS ORDERED: PANTOPRAZOLE 40 MG VIAL IV STA (22:22)
[2019-06-08 22:50] LABS: Amylase 24 U/L (25-115)
[2019-06-08 22:55] LABS: Troponin I < 0.015 NG/ML (0.00-0.045)
[2019-06-09] MEDS ORDERED: metroNIDAZOLE INJ 500 MG in PREMIX 1 EACH IV STA (00:20)
[2019-06-09] MEDS ORDERED: CIPROFLOXACIN INJ 400 MG in PREMIX 1 EACH IV STA (00:20)
[2019-06-09] MEDS ORDERED: NICOTINE 21 MG/24 HR PATCH TRANSDERM PRN (00:56)
[2019-06-09] MEDS ORDERED: diphenhydrAMINE CAP 25 MG CAPSULE PO PRN (00:56)
[2019-06-09] MEDS ORDERED: METOCLOPRAMIDE 10 MG/2 ML VIAL IV PRN (00:56)
[2019-06-09] MEDS ORDERED: SODIUM CHLORIDE 0.9% 1,000 ML IV SCH (01:00)
[2019-06-09 02:44] LABS: Risk Ratio 3.42; VLDL CHOLESTEROL 23.2 MG/DL
[2019-06-09] MEDS: PROMETHAZINE 25 MG/1 ML VIAL IM PRN ×4 (03:47→21:12)
[2019-06-09] MEDS ORDERED: DEXTROSE 10% 250 ML BAG IV PRN (07:25)
[2019-06-09] MEDS ORDERED: GLUCAGON 1 MG VIAL IM PRN (07:25)
[2019-06-09] MEDS: CARVEDILOL 25 MG TABLET PO SCH ×2 (09:53→21:15)
[2019-06-09] MEDS: ASPIRIN EC 81 MG TABLET PO SCH (09:53)
[2019-06-09] MEDS: PANTOPRAZOLE 40 MG TABLET PO SCH ×2 (09:53→21:15)
[2019-06-09] MEDS: INSULIN LISPRO 100 UNIT/ML SUBCUT SCH ×4 (09:53→23:55)
[2019-06-09] MEDS: ALLOPURINOL 100 MG TABLET PO SCH (09:54)
[2019-06-09] MEDS: GABAPENTIN 600 MG TABLET PO SCH ×2 (13:18→21:15)
[2019-06-09] MEDS: DICYCLOMINE 20 MG/2 ML AMP IM SCH ×3 (13:18→21:17)
[2019-06-09] MEDS: metroNIDAZOLE INJ 500 MG in PREMIX 1 EACH IV SCH ×2 (13:18→21:16)
[2019-06-09] MEDS: CIPROFLOXACIN INJ 400 MG in PREMIX 1 EACH IV SCH (16:49)
[2019-06-09] MEDS ORDERED: INSULIN GLARGINE 100 UNIT/ML SUBCUT SCH (21:00)
[2019-06-10] MEDS: PROMETHAZINE 25 MG TABLET PO PRN ×2 (02:46→08:48)
[2019-06-10] MEDS: DICYCLOMINE 20 MG/2 ML AMP IM SCH ×2 (02:47→08:49)
[2019-06-10] MEDS: CIPROFLOXACIN INJ 400 MG in PREMIX 1 EACH IV SCH (02:47)
[2019-06-10] MEDS: metroNIDAZOLE INJ 500 MG in PREMIX 1 EACH IV SCH ×2 (04:41→13:00)
[2019-06-10 06:20] LABS: Basophils % 0.5 % (0.0-0.8); Eosinophils # 0.3 10*3/uL (0.0-0.87); Hematocrit 34.4 VOL% (35.7-47.0); Hemoglobin 10.9 GM/DL (12.0-16.0); Immature Granulocytes % 0.6 %; Immature Granulocytes Absolute 0.05 #; Lymphocytes # 1.5 10*3/uL (1.4-4.0); Lymphocytes % 16.9 % (21.3-54.2); Mean Corpuscular HGB Conc 31.7 GM/DL (32-36); Mean Corpuscular Volume 92.2 FL (87-102); Mean Platelet Volume 9.3 FL (9.6-12.0); Platelet Count 355 T/CUMM (130-400); Red Blood Count 3.73 MC/CUMM (3.8-5.5); Red Cell Distribution Width 13.1 % (9.3-17.3); White Blood Count 8.6 T/CUMM (4-12)
[2019-06-10 06:39] LABS: Calcium 9.2 MG/DL (8.5-10.1); Osmolality,Calculated 280.7 MOS/KG (273-304)
[2019-06-10] MEDS: ALLOPURINOL 100 MG TABLET PO SCH (08:48)
[2019-06-10] MEDS: CARVEDILOL 25 MG TABLET PO SCH (08:48)
[2019-06-10] MEDS: GABAPENTIN 600 MG TABLET PO SCH (08:48)
[2019-06-10] MEDS: PANTOPRAZOLE 40 MG TABLET PO SCH (08:48)
[2019-06-10] MEDS: ASPIRIN EC 81 MG TABLET PO SCH (08:49)
[2019-06-10] MEDS: INSULIN LISPRO 100 UNIT/ML SUBCUT SCH ×2 (08:56→11:26)
[2019-06-10 12:06] VITALS: BP 131/68
== END 2019-06-10 13:30 | disposition home or self-care (01) ==
LOC: N.ED 19:32 → N.EDINP 19:32 → N.5E 06-09 01:14
PROVIDERS: ADMIT Internal Medicine Cardiovascular Disease; ATTEND Internal Medicine Cardiovascular Disease

== ENCOUNTER 2019-10-29 17:54 | Observation (INO) ==
[2019-10-29 20:23] LABS: Basophils % 0.4 % (0.0-0.8); Eosinophils # 0.2 10*3/uL (0.0-0.87); Hematocrit 32.9 VOL% (35.7-47.0); Hemoglobin 10.4 GM/DL (12.0-16.0); Immature Granulocytes % 0.3 %; Immature Granulocytes Absolute 0.03 #; Lymphocytes # 1.8 10*3/uL (1.4-4.0); Lymphocytes % 16.3 % (21.3-54.2); Mean Corpuscular HGB Conc 31.6 GM/DL (32-36); Mean Corpuscular Volume 91.6 FL (87-102); Mean Platelet Volume 9.8 FL (9.6-12.0); Monocytes % 7.2 % (1.7-12.7); Neutrophils % 73.8 % (38.7-73.9); Platelet Count 301 T/CUMM (130-400); Red Blood Count 3.59 MC/CUMM (3.8-5.5); White Blood Count 10.8 T/CUMM (4-12)
[2019-10-29 20:32] LABS: PT Patient Result 10.4 SECS (9.6-12.2); Partial Thromboplastin Time 24.7 SECS (20.8-36.0)
[2019-10-29 20:43] LABS: Albumin 3.4 G/DL (3.4-5.0); Bilirubin,Total 0.4 MG/DL (0.2-1.0); Calcium 9.4 MG/DL (8.5-10.1); Total Protein 7.9 G/DL (6.4-8.3)
[2019-10-29] MEDS ORDERED: SODIUM CHLORIDE 0.9% 1,000 ML IV STA (21:02)
[2019-10-29] MEDS ORDERED: metroNIDAZOLE 500 MG TABLET PO STA (21:57)
[2019-10-29] MEDS ORDERED: CIPROFLOXACIN 500 MG TABLET PO STA (21:57)
[2019-10-29] MEDS ORDERED: MORPHINE 4 MG/1 ML VIAL IV STA (22:03)
[2019-10-29] MEDS ORDERED: PROMETHAZINE INJ 12.5 MG in SODIUM CHLORIDE 0.9% 50 ML IV STA (22:03)
[2019-10-29] MEDS ORDERED: PROMETHAZINE 25 MG/1 ML VIAL ONE (22:59)
[2019-10-30] MEDS ORDERED: GLUCAGON 1 MG VIAL IM PRN (00:13)
[2019-10-30] MEDS ORDERED: DEXTROSE 50% 25 GM/50 ML VIAL IV PRN (00:13)
[2019-10-30] MEDS ORDERED: PROMETHAZINE INJ 25 MG in SODIUM CHLORIDE 0.9% 50 ML IV PRN (00:13)
[2019-10-30] MEDS ORDERED: SODIUM CHLORIDE 0.9% 1,000 ML IV PRN (00:13)
[2019-10-30] MEDS ORDERED: HYDROmorphone 2 MG/1 ML VIAL IV PRN (00:13)
[2019-10-30] MEDS ORDERED: ACETAMINOPHEN 325 MG TABLET PO PRN (00:13)
[2019-10-30 00:59] LABS: Hematocrit 33.2 VOL% (35.7-47.0); Hemoglobin 10.6 GM/DL (12.0-16.0)
[2019-10-30] MEDS: INSULIN LISPRO 100 UNIT/ML SUBCUT SCH ×5 (01:08→21:47)
[2019-10-30] MEDS: SODIUM CHLORIDE 0.9% 1,000 ML IV SCH ×2 (01:09→17:59)
[2019-10-30] MEDS: PANTOPRAZOLE 40 MG VIAL IV SCH ×4 (01:09→21:48)
[2019-10-30 07:02] LABS: Basophils % 0.4 % (0.0-0.8); Eosinophils # 0.2 10*3/uL (0.0-0.87); Eosinophils % 1.9 % (0.00-10.9); Hematocrit 28.6 VOL% (35.7-47.0); Immature Granulocytes % 0.5 %; Immature Granulocytes Absolute 0.05 #; Lymphocytes # 1.5 10*3/uL (1.4-4.0); Lymphocytes % 13.5 % (21.3-54.2); Mean Corpuscular HGB Conc 31.5 GM/DL (32-36); Mean Corpuscular Volume 92.3 FL (87-102); Mean Platelet Volume 9.9 FL (9.6-12.0); Monocytes % 8.3 % (1.7-12.7); Neutrophils % 75.4 % (38.7-73.9); Platelet Count 265 T/CUMM (130-400); White Blood Count 10.8 T/CUMM (4-12)
[2019-10-30] MEDS: metroNIDAZOLE INJ 500 MG in PREMIX 1 EACH IV SCH ×3 (08:34→23:48)
[2019-10-30] MEDS: CIPROFLOXACIN INJ 400 MG in PREMIX 1 EACH IV SCH (11:49)
[2019-10-30 12:46] LABS: Hematocrit 31.4 VOL% (35.7-47.0)
[2019-10-30 18:15] LABS: Hematocrit 29.7 VOL% (35.7-47.0); Hemoglobin 9.4 GM/DL (12.0-16.0)
[2019-10-31] MEDS: CIPROFLOXACIN INJ 400 MG in PREMIX 1 EACH IV SCH (01:36)
[2019-10-31 06:51] LABS: Basophils % 0.5 % (0.0-0.8); Eosinophils # 0.3 10*3/uL (0.0-0.87); Eosinophils % 3.2 % (0.00-10.9); Hematocrit 27.8 VOL% (35.7-47.0); Hemoglobin 8.7 GM/DL (12.0-16.0); Immature Granulocytes % 0.4 %; Immature Granulocytes Absolute 0.03 #; Lymphocytes # 1.5 10*3/uL (1.4-4.0); Mean Corpuscular HGB Conc 31.3 GM/DL (32-36); Mean Corpuscular Volume 91.4 FL (87-102); Mean Platelet Volume 10.2 FL (9.6-12.0); Monocytes % 7.6 % (1.7-12.7); Neutrophils % 69.3 % (38.7-73.9); Platelet Count 269 T/CUMM (130-400); Red Blood Count 3.04 MC/CUMM (3.8-5.5); Red Cell Distribution Width 13.9 % (9.3-17.3); White Blood Count 7.7 T/CUMM (4-12)
[2019-10-31 07:04] LABS: Calcium 8.6 MG/DL (8.5-10.1); Osmolality,Calculated 284.1 MOS/KG (273-304)
[2019-10-31] MEDS ORDERED: POTASSIUM CHLORIDE 20 MEQ TABLET PO ONE (09:41)
[2019-10-31] MEDS: PANTOPRAZOLE 40 MG VIAL IV SCH (10:10)
[2019-10-31] MEDS: metroNIDAZOLE INJ 500 MG in PREMIX 1 EACH IV SCH (10:11)
[2019-10-31] MEDS: INSULIN LISPRO 100 UNIT/ML SUBCUT SCH (10:22)
[2019-10-31] MEDS: SODIUM CHLORIDE 0.9% 1,000 ML IV SCH (10:22)
[2019-10-31 12:51] VITALS: BP 153/69
[2019-10-31] MEDS ORDERED: metroNIDAZOLE 500 MG TABLET PO SCH (14:00)
[2019-10-31] MEDS ORDERED: CIPROFLOXACIN 500 MG TABLET PO SCH (21:00)
== END 2019-10-31 13:50 | disposition home or self-care (01) ==
LOC: N.ED 17:54 → N.EDINP 22:10 → INTOOBSV 22:10 → N.5E 23:30
PROVIDERS: ADMIT Internal Medicine; ATTEND Internal Medicine

== ENCOUNTER 2020-10-12 14:36 | Inpatient (IN) ==
[2020-10-12 17:50] LABS: Basophils % 0.3 % (0.0-0.8); Eosinophils % 0.3 % (0.00-10.9); Immature Granulocytes % 0.3 %; Immature Granulocytes Absolute 0.04 #; Lymphocytes # 1.2 10*3/uL (1.4-4.0); Lymphocytes % 10.2 % (21.3-54.2); Mean Corpuscular HGB Conc 32.4 GM/DL (32-36); Mean Corpuscular Volume 93.7 FL (87-102); Mean Platelet Volume 9.1 FL (9.6-12.0); Monocytes % 6.3 % (1.7-12.7); Neutrophils % 82.6 % (38.7-73.9); Platelet Count 243 T/CUMM (130-400); Red Blood Count 3.63 MC/CUMM (3.8-5.5); Red Cell Distribution Width 13.5 % (9.3-17.3); White Blood Count 11.5 T/CUMM (4-12)
[2020-10-12 18:01] LABS: PT Patient Result 11.2 SECS (9.8-11.9)
[2020-10-12 18:12] LABS: Albumin 3.4 G/DL (3.4-5.0); Bilirubin,Total 0.6 MG/DL (0.2-1.0); Ferritin 1293.6 ng/ml (8-252); Osmolality,Calculated 278.7 MOS/KG (273-304)
[2020-10-12] MEDS ORDERED: ASPIRIN 325 MG TABLET ONE (18:33)
[2020-10-12] MEDS ORDERED: ENOXAPARIN 80 MG/0.8 ML SYRINGE SUBCUT STA (18:38)
[2020-10-12] MEDS ORDERED: NITROGLYCERIN SL 0.4 MG TABLET SL PRN (18:38)
[2020-10-12] MEDS ORDERED: ENOXAPARIN 30 MG/0.3 ML SYRINGE SUBCUT STA (18:59)
[2020-10-12] MEDS ORDERED: AZITHROMYCIN 250 MG TABLET PO ONE (22:30)
[2020-10-12] MEDS ORDERED: DEXTROSE 50% 25 GM/50 ML VIAL IV PRN ×2 (22:37)
[2020-10-12] MEDS ORDERED: GLUCAGON 1 MG VIAL IM PRN (22:37)
[2020-10-12] MEDS ORDERED: SODIUM CHLORIDE 0.9% 1,000 ML IV SCH (23:00)
[2020-10-13] MEDS: GABAPENTIN 600 MG TABLET PO SCH ×3 (00:51→21:15)
[2020-10-13] MEDS: METHOCARBAMOL 750 MG TABLET PO SCH ×2 (00:51→22:31)
[2020-10-13] MEDS: ALBUTEROL INHALER 18 GM INH SCH ×4 (01:50→18:20)
[2020-10-13 06:00] LABS: Basophils % 0.2 % (0.0-0.8); Eosinophils % 0.2 % (0.00-10.9); Hematocrit 33.2 VOL% (35.7-47.0); Hemoglobin 10.8 GM/DL (12.0-16.0); Immature Granulocytes % 0.5 %; Immature Granulocytes Absolute 0.04 #; Lymphocytes # 1.5 10*3/uL (1.4-4.0); Lymphocytes % 18.4 % (21.3-54.2); Mean Corpuscular HGB Conc 32.5 GM/DL (32-36); Mean Corpuscular Volume 95.1 FL (87-102); Mean Platelet Volume 9.7 FL (9.6-12.0); Monocytes % 6.6 % (1.7-12.7); Neutrophils % 74.1 % (38.7-73.9); Platelet Count 221 T/CUMM (130-400); Red Blood Count 3.49 MC/CUMM (3.8-5.5); Red Cell Distribution Width 13.6 % (9.3-17.3); White Blood Count 8.1 T/CUMM (4-12)
[2020-10-13 06:42] LABS: Calcium 8.2 MG/DL (8.5-10.1); Osmolality,Calculated 276.1 MOS/KG (273-304)
[2020-10-13] MEDS ORDERED: DEXAMETHASONE 10 MG/1 ML VIAL IV SCH (09:00)
[2020-10-13] MEDS ORDERED: FLUTICASONE 50 MCG NASAL SPRAY 16 GM BOTTLE BOTH NARES PRN (09:00)
[2020-10-13] MEDS ORDERED: AZITHROMYCIN 250 MG TABLET PO ONE (09:00)
[2020-10-13] MEDS: CHOLECALCIFEROL 1,000 UNIT TABLET PO SCH (09:27)
[2020-10-13] MEDS: ZINC SULFATE 220 MG CAPSULE PO SCH (09:27)
[2020-10-13] MEDS: CETIRIZINE 10 MG TABLET PO SCH (09:28)
[2020-10-13] MEDS: ESTRADIOL 1 MG TABLET PO SCH (09:28)
[2020-10-13] MEDS: carvediloL 25 MG TABLET PO SCH ×2 (09:28→16:15)
[2020-10-13] MEDS: LOSARTAN 50 MG TABLET PO SCH (09:28)
[2020-10-13] MEDS: ASCORBIC ACID 500 MG TABLET PO SCH (09:28)
[2020-10-13] MEDS: ASPIRIN EC 81 MG TABLET PO SCH (09:28)
[2020-10-13] MEDS: FAMOTIDINE 20 MG TABLET PO SCH ×2 (09:28→21:15)
[2020-10-13] MEDS: INSULIN LISPRO 100 UNIT/ML SUBCUT SCH ×4 (09:29→22:05)
[2020-10-13] MEDS: allopurinoL 100 MG TABLET PO SCH (09:29)
[2020-10-13] MEDS: ENOXAPARIN 100 MG/ML SYRINGE SUBCUT SCH ×2 (09:29→21:15)
[2020-10-13] MEDS: BENZONATATE 100 MG CAPSULE PO PRN ×2 (11:16→21:15)
[2020-10-13] MEDS: ACETAMINOPHEN 325 MG TABLET PO PRN ×2 (11:17→21:15)
[2020-10-13] MEDS ORDERED: SODIUM CHLORIDE 0.9% 1,000 ML IV PRN (14:12)
[2020-10-13] MEDS ORDERED: REMDESIVIR 200 MG in SODIUM CHLORIDE 0.9% 210 ML IV ONE (15:00)
[2020-10-13] MEDS: ROSUVASTATIN 20 MG TABLET PO SCH (21:15)
[2020-10-14] MEDS: ALBUTEROL INHALER 18 GM INH SCH ×4 (00:10→18:12)
[2020-10-14 07:04] LABS: Basophils % 0.2 % (0.0-0.8); Hematocrit 30.8 VOL% (35.7-47.0); Hemoglobin 9.9 GM/DL (12.0-16.0); Immature Granulocytes % 0.4 %; Immature Granulocytes Absolute 0.03 #; Lymphocytes # 0.9 10*3/uL (1.4-4.0); Lymphocytes % 11.2 % (21.3-54.2); Mean Corpuscular HGB Conc 32.1 GM/DL (32-36); Mean Corpuscular Volume 92.8 FL (87-102); Mean Platelet Volume 9.9 FL (9.6-12.0); Monocytes % 6.6 % (1.7-12.7); Neutrophils % 81.6 % (38.7-73.9); Platelet Count 248 T/CUMM (130-400); Red Blood Count 3.32 MC/CUMM (3.8-5.5); Red Cell Distribution Width 13.4 % (9.3-17.3); White Blood Count 8.2 T/CUMM (4-12)
[2020-10-14 07:27] LABS: Calcium 8.5 MG/DL (8.5-10.1); Osmolality,Calculated 295.7 MOS/KG (273-304)
[2020-10-14] MEDS ORDERED: ENOXAPARIN 40 MG/0.4 ML SYRINGE SUBCUT SCH (08:00)
[2020-10-14] MEDS ORDERED: REMDESIVIR 100 MG in SODIUM CHLORIDE 0.9% 230 ML IV SCH (09:00)
[2020-10-14] MEDS: CHOLECALCIFEROL 1,000 UNIT TABLET PO SCH (09:01)
[2020-10-14] MEDS: ESTRADIOL 1 MG TABLET PO SCH (09:02)
[2020-10-14] MEDS: GABAPENTIN 600 MG TABLET PO SCH ×2 (09:02→20:05)
[2020-10-14] MEDS: FAMOTIDINE 20 MG TABLET PO SCH (09:02)
[2020-10-14] MEDS: ASPIRIN EC 81 MG TABLET PO SCH (09:02)
[2020-10-14] MEDS: BENZONATATE 100 MG CAPSULE PO PRN ×2 (09:02→16:47)
[2020-10-14] MEDS: allopurinoL 100 MG TABLET PO SCH (09:02)
[2020-10-14] MEDS: ASCORBIC ACID 500 MG TABLET PO SCH (09:03)
[2020-10-14] MEDS: INSULIN LISPRO 100 UNIT/ML SUBCUT SCH ×4 (09:03→21:02)
[2020-10-14] MEDS: AZITHROMYCIN 250 MG TABLET PO SCH (09:03)
[2020-10-14] MEDS: DEXAMETHASONE 10 MG/1 ML VIAL IV SCH (09:04)
[2020-10-14] MEDS: carvediloL 25 MG TABLET PO SCH ×2 (09:05→16:07)
[2020-10-14] MEDS: LOSARTAN 50 MG TABLET PO SCH (09:05)
[2020-10-14] MEDS: CETIRIZINE 10 MG TABLET PO SCH (09:58)
[2020-10-14] MEDS: ACETAMINOPHEN 325 MG TABLET PO PRN (10:00)
[2020-10-14] MEDS: ROSUVASTATIN 20 MG TABLET PO SCH (20:05)
[2020-10-14] MEDS: PROMETHAZINE INJ 25 MG in SODIUM CHLORIDE 0.9% 50 ML IV PRN (22:12)
[2020-10-14] MEDS: METHOCARBAMOL 750 MG TABLET PO SCH (22:30)
[2020-10-15] MEDS: ALBUTEROL INHALER 18 GM INH SCH ×4 (00:33→18:14)
[2020-10-15 06:13] LABS: Basophils % 0.1 % (0.0-0.8); Hemoglobin 10.8 GM/DL (12.0-16.0); Immature Granulocytes % 0.5 %; Immature Granulocytes Absolute 0.05 #; Lymphocytes # 0.9 10*3/uL (1.4-4.0); Lymphocytes % 9.3 % (21.3-54.2); Mean Corpuscular HGB Conc 32.7 GM/DL (32-36); Mean Corpuscular Volume 93.2 FL (87-102); Mean Platelet Volume 10.3 FL (9.6-12.0); Monocytes % 6.1 % (1.7-12.7); Platelet Count 244 T/CUMM (130-400); Red Blood Count 3.54 MC/CUMM (3.8-5.5); Red Cell Distribution Width 13.4 % (9.3-17.3); White Blood Count 9.6 T/CUMM (4-12)
[2020-10-15 06:53] LABS: Calcium 8.7 MG/DL (8.5-10.1); Osmolality,Calculated 290.7 MOS/KG (273-304)
[2020-10-15] MEDS: DEXAMETHASONE 10 MG/1 ML VIAL IV SCH (08:59)
[2020-10-15] MEDS: ASCORBIC ACID 500 MG TABLET PO SCH (08:59)
[2020-10-15] MEDS: carvediloL 25 MG TABLET PO SCH ×2 (09:00→16:24)
[2020-10-15] MEDS: ESTRADIOL 1 MG TABLET PO SCH (09:00)
[2020-10-15] MEDS: AZITHROMYCIN 250 MG TABLET PO SCH (09:00)
[2020-10-15] MEDS: CHOLECALCIFEROL 1,000 UNIT TABLET PO SCH (09:00)
[2020-10-15] MEDS: FAMOTIDINE 20 MG TABLET PO SCH (09:00)
[2020-10-15] MEDS: ZINC SULFATE 220 MG CAPSULE PO SCH (09:00)
[2020-10-15] MEDS ORDERED: ENOXAPARIN 30 MG/0.3 ML SYRINGE SUBCUT SCH (09:00)
[2020-10-15] MEDS: GABAPENTIN 600 MG TABLET PO SCH ×2 (09:00→20:58)
[2020-10-15] MEDS: CETIRIZINE 10 MG TABLET PO SCH (09:00)
[2020-10-15] MEDS: APIXABAN 5 MG TABLET PO SCH ×2 (09:01→20:59)
[2020-10-15] MEDS: ASPIRIN EC 81 MG TABLET PO SCH (09:01)
[2020-10-15] MEDS: allopurinoL 100 MG TABLET PO SCH (09:01)
[2020-10-15] MEDS: INSULIN LISPRO 100 UNIT/ML SUBCUT SCH ×4 (09:01→21:00)
[2020-10-15] MEDS: INSULIN GLARGINE 100 UNIT/ML SUBCUT SCH (09:53)
[2020-10-15] MEDS: BENZONATATE 100 MG CAPSULE PO PRN (20:58)
[2020-10-15] MEDS: ROSUVASTATIN 20 MG TABLET PO SCH (20:59)
[2020-10-15] MEDS: PROMETHAZINE INJ 25 MG in SODIUM CHLORIDE 0.9% 50 ML IV PRN (21:00)
[2020-10-16] MEDS: METHOCARBAMOL 750 MG TABLET PO SCH (04:00)
[2020-10-16 09:04] LABS: Calcium 8.6 MG/DL (8.5-10.1); Osmolality,Calculated 296.5 MOS/KG (273-304)
[2020-10-16] MEDS: FAMOTIDINE 20 MG TABLET PO SCH (09:07)
[2020-10-16] MEDS: DEXAMETHASONE 10 MG/1 ML VIAL IV SCH (09:07)
[2020-10-16] MEDS: allopurinoL 100 MG TABLET PO SCH (09:07)
[2020-10-16] MEDS: GABAPENTIN 600 MG TABLET PO SCH (09:08)
[2020-10-16] MEDS: CHOLECALCIFEROL 1,000 UNIT TABLET PO SCH (09:08)
[2020-10-16] MEDS: carvediloL 25 MG TABLET PO SCH (09:08)
[2020-10-16] MEDS: ASCORBIC ACID 500 MG TABLET PO SCH (09:08)
[2020-10-16] MEDS: ESTRADIOL 1 MG TABLET PO SCH (09:09)
[2020-10-16] MEDS: APIXABAN 5 MG TABLET PO SCH (09:09)
[2020-10-16] MEDS: ALBUTEROL INHALER 18 GM INH SCH ×3 (09:09→12:50)
[2020-10-16] MEDS: AZITHROMYCIN 250 MG TABLET PO SCH (09:09)
[2020-10-16] MEDS: ASPIRIN EC 81 MG TABLET PO SCH (09:09)
[2020-10-16] MEDS: INSULIN LISPRO 100 UNIT/ML SUBCUT SCH ×2 (09:09→12:49)
[2020-10-16] MEDS: CETIRIZINE 10 MG TABLET PO SCH (09:09)
[2020-10-16] MEDS: INSULIN GLARGINE 100 UNIT/ML SUBCUT SCH (09:10)
[2020-10-16 13:30] VITALS: BP 112/56
== END 2020-10-16 15:35 | disposition home health service (06) | DRG 177 ==
LOC: N.ED 14:36 → N.EDINP 20:52 → N.2E 21:28
PROVIDERS: ADMIT Internal Medicine; ATTEND Internal Medicine

== ENCOUNTER 2020-10-18 16:00 | Observation (INO) ==
[2020-10-18 17:27] LABS: Basophils % 0.1 % (0.0-0.8); Eosinophils % 0.2 % (0.00-10.9); Hematocrit 33.3 VOL% (35.7-47.0); Immature Granulocytes Absolute 0.21 #; Lymphocytes # 0.9 10*3/uL (1.4-4.0); Lymphocytes % 8.5 % (21.3-54.2); Mean Corpuscular Volume 92.2 FL (87-102); Mean Platelet Volume 9.7 FL (9.6-12.0); Monocytes % 11.6 % (1.7-12.7); NRBC # 0.02 10*3/uL; Neutrophils % 77.6 % (38.7-73.9); Platelet Count 344 T/CUMM (130-400); Red Blood Count 3.61 MC/CUMM (3.8-5.5); Red Cell Distribution Width 13.4 % (9.3-17.3); White Blood Count 10.7 T/CUMM (4-12)
[2020-10-18 17:55] LABS: Bilirubin,Total 0.4 MG/DL (0.2-1.0); Calcium 8.8 MG/DL (8.5-10.1); Osmolality,Calculated 291.5 MOS/KG (273-304); Total Protein 6.9 G/DL (6.4-8.3)
[2020-10-18 20:17] LABS: ABG Base Excess 0.5 MMOL/L (-2.5-2.5); ABG HCO3 24.8 MMOL/L (20-26); ABG Oxygen Saturation 92.2 % (95-100); ABG PCO2 32.6 MM HG (35-48); ABG PH 7.469 (7.35-7.45); ABG PO2 65.3 MM HG (80-95); ABG TCO2 21.3 MMOL/L (23-27); Allen Test Positive
[2020-10-18] MEDS ORDERED: GLUCAGON 1 MG VIAL IM PRN (21:05)
[2020-10-18] MEDS ORDERED: PROMETHAZINE 25 MG/1 ML VIAL IM PRN (21:05)
[2020-10-18] MEDS ORDERED: DOCUSATE SODIUM 100 MG CAPSULE PO PRN (21:05)
[2020-10-18] MEDS ORDERED: DEXTROSE 50% 25 GM/50 ML VIAL IV PRN (21:05)
[2020-10-18] MEDS ORDERED: MAGNESIUM SULF RIDER 4 GM in PREMIX 1 EACH IV PRN (21:11)
[2020-10-18] MEDS ORDERED: MAGNESIUM SULF RIDER 2 GM in PREMIX 1 EACH IV PRN (21:11)
[2020-10-18] MEDS ORDERED: FLUTICASONE 50 MCG NASAL SPRAY 16 GM BOTTLE BOTH NARES PRN (21:12)
[2020-10-18] MEDS ORDERED: NITROGLYCERIN SL 0.4 MG TABLET SL PRN (21:12)
[2020-10-18] MEDS ORDERED: GABAPENTIN 600 MG TABLET PO SCH (21:30)
[2020-10-18] MEDS ORDERED: METHOCARBAMOL 750 MG TABLET PO SCH (21:30)
[2020-10-18] MEDS: APIXABAN 5 MG TABLET PO SCH (23:52)
[2020-10-18] MEDS: PANTOPRAZOLE 40 MG TABLET PO SCH (23:52)
[2020-10-18] MEDS: ACETAMINOPHEN 325 MG TABLET PO PRN (23:53)
[2020-10-19] MEDS: ALBUTEROL INHALER 18 GM INH SCH ×4 (00:08→20:40)
[2020-10-19 05:52] LABS: Basophils % 0.2 % (0.0-0.8); Eosinophils % 0.3 % (0.00-10.9); Hematocrit 31.2 VOL% (35.7-47.0); Hemoglobin 10.3 GM/DL (12.0-16.0); Immature Granulocytes % 1.5 %; Immature Granulocytes Absolute 0.15 #; Lymphocytes % 9.7 % (21.3-54.2); Mean Corpuscular Volume 91.8 FL (87-102); Mean Platelet Volume 9.4 FL (9.6-12.0); Monocytes % 13.8 % (1.7-12.7); Neutrophils % 74.5 % (38.7-73.9); Platelet Count 307 T/CUMM (130-400); Red Cell Distribution Width 13.6 % (9.3-17.3); White Blood Count 9.8 T/CUMM (4-12)
[2020-10-19 06:21] LABS: Osmolality,Calculated 293.3 MOS/KG (273-304)
[2020-10-19 06:33] LABS: Anisocytosis 1+; Lymphocytes 9 % (20-55); Platelet Estimate Normal; Segmented Neutrophils 78 % (50-85); Total Cells Counted 100
[2020-10-19 06:34] LABS: Macrocytosis Slight
[2020-10-19] MEDS ORDERED: ZINC SULFATE 220 MG CAPSULE PO SCH (09:00)
[2020-10-19] MEDS: BENZONATATE 100 MG CAPSULE PO PRN ×2 (09:44→20:40)
[2020-10-19] MEDS: ESTRADIOL 1 MG TABLET PO SCH (09:45)
[2020-10-19] MEDS: FUROSEMIDE 40 MG TABLET PO SCH (09:45)
[2020-10-19] MEDS: ASPIRIN EC 81 MG TABLET PO SCH (09:46)
[2020-10-19] MEDS: APIXABAN 5 MG TABLET PO SCH ×2 (09:46→20:40)
[2020-10-19] MEDS: DEXAMETHASONE 4 MG TABLET PO SCH (09:46)
[2020-10-19] MEDS: ASCORBIC ACID 500 MG TABLET PO SCH (09:47)
[2020-10-19] MEDS: PANTOPRAZOLE 40 MG TABLET PO SCH ×2 (09:47→20:40)
[2020-10-19] MEDS: ROSUVASTATIN 20 MG TABLET PO SCH (09:47)
[2020-10-19] MEDS: CHOLECALCIFEROL 1,000 UNIT TABLET PO SCH (09:47)
[2020-10-19] MEDS: allopurinoL 100 MG TABLET PO SCH (09:47)
[2020-10-19] MEDS: INSULIN GLARGINE 100 UNIT/ML SUBCUT SCH ×2 (09:48→20:40)
[2020-10-19] MEDS: carvediloL 25 MG TABLET PO SCH ×2 (09:48→16:55)
[2020-10-19] MEDS: INSULIN LISPRO 100 UNIT/ML SUBCUT SCH ×4 (10:10→20:40)
[2020-10-19] MEDS: LOSARTAN 50 MG TABLET PO SCH (14:55)
[2020-10-19] MEDS: ACETAMINOPHEN 325 MG TABLET PO PRN (20:40)
[2020-10-20] MEDS: ALBUTEROL INHALER 18 GM INH SCH ×2 (00:41→06:05)
[2020-10-20] MEDS: LOSARTAN 50 MG TABLET PO SCH (08:19)
[2020-10-20] MEDS: APIXABAN 5 MG TABLET PO SCH (08:19)
[2020-10-20] MEDS: ROSUVASTATIN 20 MG TABLET PO SCH (08:19)
[2020-10-20] MEDS: allopurinoL 100 MG TABLET PO SCH (08:19)
[2020-10-20] MEDS: ASPIRIN EC 81 MG TABLET PO SCH (08:19)
[2020-10-20] MEDS: carvediloL 25 MG TABLET PO SCH (08:19)
[2020-10-20] MEDS: DEXAMETHASONE 4 MG TABLET PO SCH (08:19)
[2020-10-20] MEDS: INSULIN GLARGINE 100 UNIT/ML SUBCUT SCH (08:19)
[2020-10-20] MEDS: ASCORBIC ACID 500 MG TABLET PO SCH (08:19)
[2020-10-20] MEDS: ESTRADIOL 1 MG TABLET PO SCH (08:19)
[2020-10-20] MEDS: CHOLECALCIFEROL 1,000 UNIT TABLET PO SCH (08:19)
[2020-10-20] MEDS: FUROSEMIDE 40 MG TABLET PO SCH (08:19)
[2020-10-20] MEDS: PANTOPRAZOLE 40 MG TABLET PO SCH (08:19)
[2020-10-20] MEDS: INSULIN LISPRO 100 UNIT/ML SUBCUT SCH ×2 (08:49→12:19)
[2020-10-20 12:05] VITALS: BP 138/67
== END 2020-10-20 14:20 | disposition home health service (06) ==
LOC: EDUNIT# → EDBD → N.ED 16:00 → N.2E 16:00
PROVIDERS: ADMIT Family Medicine; ATTEND Family Medicine

== ENCOUNTER 2022-07-13 19:21 | Observation (INO) ==
[2022-07-13 19:49] LABS: Basophils # 0.1 10*3/uL (0.0-0.2); Basophils % 0.5 % (0.0-0.8); Eosinophils # 0.3 10*3/uL (0.0-0.87); Eosinophils % 2.7 % (0.00-10.9); Hematocrit 38.1 VOL% (35.7-47.0); Hemoglobin 12.1 GM/DL (12.0-16.0); Immature Granulocytes % 0.5 %; Immature Granulocytes Absolute 0.05 #; Lymphocytes # 2.5 10*3/uL (1.4-4.0); Lymphocytes % 24.6 % (21.3-54.2); Mean Corpuscular HGB Conc 31.8 GM/DL (32-36); Mean Corpuscular Volume 94.1 FL (87-102); Mean Platelet Volume 9.6 FL (9.6-12.0); Monocytes # 0.7 10*3/uL (0.11-0.8); Monocytes % 6.4 % (1.7-12.7); Neutrophils % 65.3 % (38.7-73.9); Platelet Count 285 T/CUMM (130-400); Red Blood Count 4.05 MC/CUMM (3.8-5.5); Red Cell Distribution Width 15.9 % (9.3-17.3); White Blood Count 10.3 T/CUMM (4-12)
[2022-07-13 20:05] LABS: PT Patient Result 10.7 SECS (10.1-12.1); Partial Thromboplastin Time 26.9 SECS (23.7-32.9)
[2022-07-13 20:07] LABS: Alanine Aminotransferase 22 U/L (13-56); Albumin 3.3 G/DL (3.4-5.0); Alkaline Phosphatase 157 U/L (45-117); Aspartate Amino Transferase 15 U/L (0-37); Bilirubin,Total < 0.39 MG/DL (0.20-1.00); Blood Urea Nitrogen 20 MG/DL (7-18); Calcium 10.3 MG/DL (8.5-10.1); Carbon Dioxide 23 MMOL/L (21-32); Chloride 108 MMOL/L (98-107); Glucose 195 MG/DL (74-106); Osmolality,Calculated 284.5 MOS/KG (273-304); Potassium 3.8 MMOL/L (3.5-5.1); Sodium 139 MMOL/L (136-145); Total Protein 7.8 G/DL (6.4-8.2)
[2022-07-13] MEDS ORDERED: ACETAMINOPHEN 325 MG TABLET PO ONE (23:14)
[2022-07-13] MEDS ORDERED: DILTIAZEM 30 MG TABLET PO STA (23:28)
[2022-07-14] MEDS ORDERED: MAGNESIUM SULF RIDER 4 GM/100 ML PREMIX IV PRN (00:27)
[2022-07-14] MEDS ORDERED: MAGNESIUM SULF RIDER 2 GM/50 ML PREMIX IV PRN (00:27)
[2022-07-14] MEDS ORDERED: MORPHINE 2 MG/1 ML SYRINGE IV PRN (00:27)
[2022-07-14] MEDS: SODIUM CHLORIDE 0.45% 1,000 ML IV SCH ×2 (01:20→14:55)
[2022-07-14 02:13] LABS: Bacteria,Urine Occasional /HPF (Few); RBC,Urine <1 /HPF (0-4); Squamous Epithelial Cell,Urine Occasional /HPF (0-10)
[2022-07-14 02:14] LABS: Bilirubin,Urine Negative (Negative); Blood, Urine Negative (Negative); Glucose,Urine (UA) Negative (Negative); Ketones,Urine Negative (Negative); Nitrite,Urine Negative (Negative); Protein,Urine Negative (Negative); Urine Appearance Clear (Clear); Urine Color Yellow (Yellow); Urine Specific Gravity 1.015 (1.001-1.035); Urine Urobilinogen 0.2 eU/dL (<2.0)
[2022-07-14 05:16] LABS: Calcium 9.6 MG/DL (8.5-10.1); Osmolality,Calculated 286.3 MOS/KG (273-304); Potassium 3.7 MMOL/L (3.5-5.1); Thyroid Stimulating Hormone 0.755 uIU/ml (0.358-3.74)
[2022-07-14] MEDS ORDERED: FUROSEMIDE 40 MG TABLET PO PRN (08:23)
[2022-07-14] MEDS ORDERED: NITROGLYCERIN SL 0.4 MG TABLET SL PRN (08:23)
[2022-07-14] MEDS ORDERED: ACETAMINOPHEN 325 MG TABLET PO PRN (08:23)
[2022-07-14] MEDS ORDERED: CYCLOBENZAPRINE 10 MG TABLET PO PRN (08:23)
[2022-07-14] MEDS ORDERED: CALCIUM CARBONATE CHEW 500 MG TABLET PO PRN (08:26)
[2022-07-14] MEDS ORDERED: DEXTROSE 10% 250 ML BAG IV PRN (08:26)
[2022-07-14] MEDS ORDERED: ALUMINUM/MAGNES/SIMETH MAX STR 30 ML UDCUP PO PRN (08:26)
[2022-07-14] MEDS ORDERED: SIMETHICONE CHEW 125 MG TABLET PO PRN (08:26)
[2022-07-14] MEDS ORDERED: LACTULOSE 20 GM/30 ML UDCUP PO PRN (08:26)
[2022-07-14] MEDS ORDERED: ZALEPLON 5 MG CAPSULE PO PRN (08:26)
[2022-07-14] MEDS ORDERED: GLUCAGON 1 MG VIAL IM PRN (08:26)
[2022-07-14] MEDS ORDERED: BISACODYL 5 MG TABLET PO PRN (08:26)
[2022-07-14] MEDS ORDERED: DILTIAZEM 30 MG TABLET PO SCH (09:00)
[2022-07-14] MEDS ORDERED: cloNIDine 0.1 MG TABLET PO PRN (09:05)
[2022-07-14] MEDS: ASCORBIC ACID 500 MG TABLET PO SCH (09:33)
[2022-07-14] MEDS: CHOLECALCIFEROL 1,000 UNIT TABLET PO SCH (09:33)
[2022-07-14] MEDS: ZINC SULFATE 220 MG CAPSULE PO SCH (09:34)
[2022-07-14] MEDS: allopurinoL 100 MG TABLET PO SCH (09:34)
[2022-07-14] MEDS: ASPIRIN EC 81 MG TABLET PO SCH (09:35)
[2022-07-14] MEDS: ENOXAPARIN 40 MG/0.4 ML SYRINGE SUBCUT SCH (09:35)
[2022-07-14] MEDS: carvediloL 25 MG TABLET PO SCH ×2 (09:36→21:19)
[2022-07-14] MEDS: ROSUVASTATIN 20 MG TABLET PO SCH (09:44)
[2022-07-14] MEDS: PANTOPRAZOLE 40 MG TABLET PO SCH (09:45)
[2022-07-14] MEDS: GABAPENTIN 300 MG CAPSULE PO SCH ×2 (11:10→21:19)
[2022-07-14] MEDS: INSULIN LISPRO 100 UNIT/ML SUBCUT SCH ×3 (12:40→21:20)
[2022-07-14] MEDS: AMIODARONE 200 MG TABLET PO SCH (15:25)
[2022-07-14] MEDS: INSULIN GLARGINE 100 UNIT/ML SUBCUT SCH (21:20)
[2022-07-15 05:30] LABS: Basophils # 0.1 10*3/uL (0.0-0.2); Basophils % 0.7 % (0.0-0.8); Eosinophils # 0.3 10*3/uL (0.0-0.87); Eosinophils % 3.5 % (0.00-10.9); Hematocrit 33.5 VOL% (35.7-47.0); Hemoglobin 10.7 GM/DL (12.0-16.0); Immature Granulocytes % 0.5 %; Immature Granulocytes Absolute 0.04 #; Lymphocytes # 1.9 10*3/uL (1.4-4.0); Lymphocytes % 22.2 % (21.3-54.2); Mean Corpuscular HGB Conc 31.9 GM/DL (32-36); Mean Corpuscular Volume 93.6 FL (87-102); Mean Platelet Volume 9.8 FL (9.6-12.0); Monocytes # 0.6 10*3/uL (0.11-0.8); Monocytes % 6.9 % (1.7-12.7); Neutrophils % 66.2 % (38.7-73.9); Platelet Count 232 T/CUMM (130-400); Red Blood Count 3.58 MC/CUMM (3.8-5.5); Red Cell Distribution Width 15.6 % (9.3-17.3); White Blood Count 8.3 T/CUMM (4-12)
[2022-07-15 05:50] LABS: Calcium 9.4 MG/DL (8.5-10.1); Osmolality,Calculated 290.5 MOS/KG (273-304)
[2022-07-15] MEDS ORDERED: SODIUM CHLORIDE 0.9% 1,000 ML IV SCH (06:00)
[2022-07-15] MEDS ORDERED: diphenhydrAMINE CAP 50 MG CAPSULE PO ONE (07:00)
[2022-07-15] MEDS ORDERED: DIAZEPAM 5 MG TABLET PO ONE (07:00)
[2022-07-15] MEDS ORDERED: LIDOCAINE 1%/EPI INJ 20 ML VIAL ONE (08:00)
[2022-07-15] MEDS ORDERED: HEPARIN/NACL 0.9% 2 UNITS/ML 2,000 UNIT/1,000 ML BAG IV ONE (08:00)
[2022-07-15] MEDS: AMIODARONE 200 MG TABLET PO SCH (08:22)
[2022-07-15] MEDS: ROSUVASTATIN 20 MG TABLET PO SCH (08:23)
[2022-07-15] MEDS: LOSARTAN 50 MG TABLET PO SCH (08:23)
[2022-07-15] MEDS: carvediloL 25 MG TABLET PO SCH ×2 (08:23→21:16)
[2022-07-15] MEDS: ASPIRIN EC 81 MG TABLET PO SCH (08:23)
[2022-07-15] MEDS: PANTOPRAZOLE 40 MG TABLET PO SCH (08:23)
[2022-07-15] MEDS: ZINC SULFATE 220 MG CAPSULE PO SCH (08:24)
[2022-07-15] MEDS: ASCORBIC ACID 500 MG TABLET PO SCH (08:24)
[2022-07-15] MEDS: allopurinoL 100 MG TABLET PO SCH (08:24)
[2022-07-15] MEDS: CHOLECALCIFEROL 1,000 UNIT TABLET PO SCH (08:24)
[2022-07-15] MEDS: NON-FORMULARY MEDICATION (Fluticasone-Umeclidin-Vilanter [Trelegy Ellipta] 200-62.5-25 mcg INH SCH (08:25)
[2022-07-15] MEDS: GABAPENTIN 300 MG CAPSULE PO SCH ×2 (08:26→21:16)
[2022-07-15] MEDS: INSULIN LISPRO 100 UNIT/ML SUBCUT SCH ×4 (08:26→21:16)
[2022-07-15] MEDS ORDERED: MIDAZOLAM 2 MG/2 ML VIAL ONE (08:34)
[2022-07-15] MEDS ORDERED: fentaNYL 100 MCG/2 ML VIAL ONE (08:35)
[2022-07-15] MEDS ORDERED: ENOXAPARIN 60 MG/0.6 ML SYRINGE ONE (08:55)
[2022-07-15] MEDS ORDERED: TIROFIBAN 5,000 MCG/100 ML PREMIX IV ONE (08:56)
[2022-07-15] MEDS: ENOXAPARIN 40 MG/0.4 ML SYRINGE SUBCUT SCH (10:35)
[2022-07-15] MEDS: INSULIN GLARGINE 100 UNIT/ML SUBCUT SCH (21:16)
[2022-07-16 06:22] LABS: Basophils % 0.5 % (0.0-0.8); Eosinophils # 0.2 10*3/uL (0.0-0.87); Eosinophils % 3.1 % (0.00-10.9); Hematocrit 34.8 VOL% (35.7-47.0); Hemoglobin 11.1 GM/DL (12.0-16.0); Immature Granulocytes % 0.4 %; Immature Granulocytes Absolute 0.03 #; Lymphocytes # 1.2 10*3/uL (1.4-4.0); Lymphocytes % 14.7 % (21.3-54.2); Mean Corpuscular HGB Conc 31.9 GM/DL (32-36); Mean Corpuscular Volume 93.5 FL (87-102); Mean Platelet Volume 9.4 FL (9.6-12.0); Monocytes # 0.5 10*3/uL (0.11-0.8); Monocytes % 6.9 % (1.7-12.7); Neutrophils % 74.4 % (38.7-73.9); Platelet Count 220 T/CUMM (130-400); Red Blood Count 3.72 MC/CUMM (3.8-5.5); Red Cell Distribution Width 15.4 % (9.3-17.3); White Blood Count 7.8 T/CUMM (4-12)
[2022-07-16 06:35] LABS: Calcium 9.2 MG/DL (8.5-10.1); Osmolality,Calculated 284.5 MOS/KG (273-304)
[2022-07-16 09:06] VITALS: BP 148/81
[2022-07-16] MEDS: INSULIN LISPRO 100 UNIT/ML SUBCUT SCH (09:41)
[2022-07-16] MEDS: GABAPENTIN 300 MG CAPSULE PO SCH (09:41)
[2022-07-16] MEDS: ENOXAPARIN 40 MG/0.4 ML SYRINGE SUBCUT SCH (09:41)
[2022-07-16] MEDS: ASCORBIC ACID 500 MG TABLET PO SCH (09:42)
[2022-07-16] MEDS: CHOLECALCIFEROL 1,000 UNIT TABLET PO SCH (09:42)
[2022-07-16] MEDS: AMIODARONE 200 MG TABLET PO SCH (09:42)
[2022-07-16] MEDS: ASPIRIN EC 81 MG TABLET PO SCH (09:43)
[2022-07-16] MEDS: allopurinoL 100 MG TABLET PO SCH (09:43)
[2022-07-16] MEDS: LOSARTAN 50 MG TABLET PO SCH (09:43)
[2022-07-16] MEDS: PANTOPRAZOLE 40 MG TABLET PO SCH (09:43)
[2022-07-16] MEDS: ZINC SULFATE 220 MG CAPSULE PO SCH (09:43)
[2022-07-16] MEDS: ROSUVASTATIN 20 MG TABLET PO SCH (09:43)
[2022-07-16] MEDS: carvediloL 25 MG TABLET PO SCH (09:43)
[2022-07-16] MEDS: NON-FORMULARY MEDICATION (Fluticasone-Umeclidin-Vilanter [Trelegy Ellipta] 200-62.5-25 mcg INH SCH (10:26)
== END 2022-07-16 12:55 | disposition home or self-care (01) ==
LOC: N.ED 19:21 → N.EDINP 19:21 → N.TELES 07-14 14:00
PROVIDERS: ADMIT Internal Medicine Interventional Cardiology; ATTEND Internal Medicine Interventional Cardiology
PROC: CLCCHCL (ICD-10-PCS; 2022-07-15 10:15)